=== PATIENT | male | born 1945 | race Caucasian/White ===

== ENCOUNTER 2017-04-26 01:04 | Inpatient (IN) | payer OTHER ==
[2017-04-26] MEDS ORDERED: NS 1,000 ML IV ONE ×2 (01:13→01:57)
--- NOTE | 2017-04-26 01:15 | EDPHY ---
H & P Time Seen by Provider: 04/26/17 01:10 HPI/ROS: HPI CHIEF COMPLAINT: Atrial fibrillation, hypoxic, abdominal pain, right-sided chest pain HISTORY OF PRESENT ILLNESS: This patient very pleasant 71-year-old male, history of atrial fibrillation, not on any medications specifically not any blood thinners. He initially presented to urgent care earlier today for what he thought was AFib. He was confirmed to be in AFib and sent home. Tried to go to sleep this night and felt short of breath and irregular heartbeat he became anxious and concerned that was going to stop breathing so he went to [facility] Emergency room where he was found to be in AFib and had blood work that showed a positive D-dimer slightly elevated troponin. They were unable to perform a CT scan in [facility] parking was referred here to the emergency room for further evaluation. Upon arrival to the emergency room is vital signs are stable. He is in AFib. Does complain of some left lower quadrant abdominal pain. He does report to me that he vomited 1 time and had some right posterior scapula pain. At [place] he did elevated D-dimer above 5000. Past Medical History: AFib, colitis Past Surgical History: No recent surgery Social History: Denies daily use drugs alcohol tobacco products. Family History: Noncontributory. ROS REVIEW OF SYSTEMS: A comprehensive 10 point review of systems is otherwise negative aside from elements mentioned in the history of present illness. Exam Constitutional appears well nontoxic triage nursing summary reviewed, vital signs reviewed, awake/alert. Eyes normal conjunctivae and sclera, EOMI, PERRLA. HENT normal inspection, atraumatic, moist mucus membranes, no epistaxis, neck supple/ no meningismus, no raccoon eyes. Respiratory clear to auscultation bilaterally, normal breath sounds, no respiratory distress, no wheezing. Cardiovascular irregular, irregular rhythm, regular rhythm, no murmur, no edema, distal pulses normal. Gastrointestinal soft, non-tender, no rebound, no guarding, normal bowel sounds, no distension, no pulsatile mass. Genitourinary no CVA tenderness. Musculoskeletal no midline vertebral tenderness, full range of motion, no calf swelling, no tenderness of extremities, no meningismus, good pulses, neurovascularly intact. Skin pink, warm, & dry, no rash, skin atraumatic. Neurologic awake, alert and oriented x 3, AAOx3, moves all 4 extremities equally, motor intact, sensory intact, CN II-XII intact, normal cerebellar, normal vision, normal speech. Psychiatric normal mood/affect. Heme/Lymph/Immune no lymphadenopathy. Differential diagnosis includes but is not limited to: ACS, atypical chest pain , pneumothorax, pneumonia, pulmonary embolism, aortic dissection, congestive heart failure, tumor, musculoskeletal pain, esophageal pain, GERD, peptic ulcer disease, pancreatitis, Differential diagnosis includes but is not limited to and in no particular order: Bowel obstruction, appendicitis, gallbladder disease, diverticulitis, colitis, enteritis, perforated viscus, gastritis, GERD , esophagitis, urinary tract infection, pyelonephritis, kidney stones Medical Decision Making: Plan for this patient IV established with IV fluid bolus, full chronic disease manager, obtain EKG, blood work, D-dimer, CT angiogram of the chest and CT scan abdomen pelvis with IV contrast delineate pulmonary embolism aortic dissection or acute abdominal pain colitis, diverticulitis. Re-evaluation: EKG interpretation by me on record in [email or web address] system. Impression time of EKG 1:13 a.m. this is AFib rate of 87. Abnormal T-waves in V1 V2. Subtle ST depression in V1 V2 V3. When I compare this to his old EKG dated 01/09/2014 this is new ischemic changes. ED x-ray chest one view: Reviewed by myself. Linear atelectasis right lung base. Cardiomegaly. I do not appreciate acute infiltrate. CT scan of the chest abdomen pelvis with IV contrast. The results of the study are extensive clot burden. Main pulmonary artery. Right ventricular strain. Additionally clot is seen in the left kidney. With infarcted left kidney. The study was read by Dr. Chavez I viewed the images myself on the PACS system. 0248AM: Blood work reviewed here. Patient has a positive D-dimer. Elevated BNP indicating heart strain. There is no evidence of heart failure. CT scan show pulmonary embolism patient be started on heparin bolus heparin drip. Will be admitted to PCU for close monitoring. Will consult the hospitalist for admission. 0301AM: Touch base with the hospitalist service Dr. Palacio. Agrees for admission. Patient I have ordered IV heparin bolus and IV heparin drip. Reason for heparin extensive pulmonary emboli. Additionally the patient be placed on full telemetry monitoring for close monitoring of multiple pulmonary embolism with elevated troponin heart strain nonischemic EKG. At this time is resting comfortably. He is hemodynamically stable. He has an oxygen requirement of 3 L his initial room air saturation was 84%. Additionally his son is a physician. I will touch base with him to update them. Patient be hospitalized for acute pulmonary emboli. I do not feel this patient needs team case her tPA at this time he is not hemodynamically unstable. He is not impending cardiac arrest. Critical Care: Total Critical Care Time Spent Managing this Patient: 30 Minutes. This time was spent Exclusively with this patient. This Care was exclusive of procedures. The Organ System/life at risk was Pulmonary This Patient was in Critical Condition because extensive pulmonary emboli. Source: Patient, EMS - Social History Smoking Status: Former smoker Constitutional: Initial Vital Signs Temperature (C) 36.8 C 04/26/17 01:11 Heart Rate 94 04/26/17 01:11 Respiratory Rate 20 04/26/17 01:11 Blood Pressure 131/79 H 04/26/17 01:11 O2 Sat (%) 92 04/26/17 01:11 O2 Delivery Mode Nasal Cannula O2 (L/minute) 4 Allergies/Adverse Reactions: hydrocodone Allergy (Severe, Verified 04/26/17 08:51) Other-Enter Comments morphine Allergy (Verified 04/26/17 08:55) Itching oxycodone [From OxyContin] Allergy (Verified 04/26/17 08:59) Other-Enter Comments Home Medications: Medication Instructions Recorded Ascorbic Acid [Vitamin C 500 mg 500 mg PO DAILY 04/26/17 (*)] Nebivolol HCl [Bystolic 5 mg (*)] 10 mg PO DAILY 04/26/17 [place]-3 Fatty Acids [Fish Oil 1000 1,000 mg PO DAILY 04/26/17 mg (*)] Medical Decision Making - Diagnostics Imaging Results: Imaging Impressions Chest X-Ray 04/26/17 01:13 Impression: 1. Linear atelectasis in the right lower lobe. 2. No pneumothorax. - Data Points Laboratory Results: Laboratory Results 04/26/17 01:25 04/26/17 01:25 Medications Given: Acetaminophen (Tylenol) 650 mg PO Q4HRS PRN PRN Reason: Pain, Mild/Fever, Can Take PO Stop: 10/23/17 05:54 Last Admin: 04/26/17 06:02 Dose: 650 mg Fentanyl (Sublimaze) 50 mcg IVP Q2HRS PRN PRN Reason: Pain, Severe Unable to Take PO Stop: 05/06/17 08:45 Last Admin: 04/26/17 18:49 Dose: 50 mcg Sodium Chloride (Ns) 1,000 mls @ 75 mls/hr IV CONT KATIE Stop: 10/23/17 03:14 Last Admin: 04/26/17 18:01 Dose: 1,000 mls Heparin Sodium (Porcine) (Heparin 50 Units/Ml (Premix)) 500 mls @ 0 mls/hr IV CONT KATIE; Per Protocol PRN Reason: Protocol Stop: 10/23/17 11:14 Last Admin: 04/26/17 18:31 Dose: 500 mls Nebivolol (Bystolic) 10 mg PO DAILY KATIE Stop: 10/23/17 17:29 Last Admin: 04/26/17 18:01 Dose: 10 mg Ondansetron HCl (Zofran) 4 mg IVP Q4HRS PRN PRN Reason: Nausea/Vomiting, Can't Take PO Stop: 10/23/17 03:04 Last Admin: 04/26/17 08:01 Dose: 4 mg Oxycodone/Acetaminophen (Percocet 5/325) 1 tab PO Q4HRS PRN PRN Reason: Pain, Severe Able to Take PO Stop: 05/06/17 08:44 Last Admin: 04/26/17 21:03 Dose: 1 tab Discontinued Medications Heparin Sodium (Porcine) (Heparin Injection) 0 unit IVP EDNOW ONE PRN Reason: Protocol Stop: 04/26/17 02:47 Last Admin: 04/26/17 03:12 Dose: 6,100 units Hydromorphone HCl (Dilaudid) 0.5 mg IVP EDNOW ONE Stop: 04/26/17 01:58 Last Admin: 04/26/17 02:23 Dose: 0.5 mg Sodium Chloride (Ns) 1,000 mls @ 0 mls/hr IV EDNOW ONE; Wide Open PRN Reason: Protocol Stop: 04/26/17 01:14 Last Admin: 04/26/17 02:01 Dose: 1,000 mls Sodium Chloride (Ns) 1,000 mls @ 0 mls/hr IV ONCE ONE PRN Reason: Wide Open Stop: 04/26/17 01:58 Last Admin: 04/26/17 02:20 Dose: Not Given Heparin Sodium (Porcine) (Heparin 50 Units/Ml (Premix)) 500 mls @ 0 mls/hr IV EDNOW ONE; Per Protocol PRN Reason: Protocol Stop: 04/26/17 02:47 Last Admin: 04/26/17 03:25 Dose: 500 mls Ondansetron HCl (Zofran) 4 mg IVP EDNOW ONE Stop: 04/26/17 02:04 Last Admin: 04/26/17 02:04 Dose: 4 mg Ondansetron HCl (Zofran) 4 mg IVP EDNOW ONE Stop: 04/26/17 02:51 Last Admin: 04/26/17 02:51 Dose: 4 mg Pneumococcal 13-Valent Conj Vacc (Prevnar 13 Syringe) 0.5 ml IM .ONCE ONE Stop: 04/26/17 09:59 Last Admin: 04/26/17 12:41 Dose: 0.5 ml Departure - Departure Disposition: [facility] Inpatient Acute Clinical Impression: Atrial fibrillation Qualifiers: Atrial fibrillation type: unspecified Qualified Code(s): I48.91 - Unspecified atrial fibrillation Pulmonary emboli Qualifiers: Pulmonary embolism type: other Chronicity: acute Acute cor pulmonale presence: with acute cor pulmonale Qualified Code(s): I26.09 - Other pulmonary embolism with acute cor pulmonale Condition: Fair
--- NOTE | 2017-04-26 01:16 | CPEKG ---
Heart Rate: 87 RR Interval: 690 QRSD Interval: 112 QT Interval: 404 QTC Interval: 486 QRS [place]: 109 T Wave [place]: 24 EKG Severity - ABNORMAL ECG - EKG Impression: ATRIAL FIBRILLATION, V-RATE 77-100 EKG Impression: NONSPECIFIC INTRAVENTRICULAR CONDUCTION DELAY EKG Impression: MINIMAL ST DEPRESSION, ANTERIOR LEADS Electronically Signed By: Marquis Guerrier 26-Apr-2017 06:35:17
--- NOTE | 2017-04-26 01:16 | CPEKG ---
Heart Rate: 87 RR Interval: 690 QRSD Interval: 112 QT Interval: 404 QTC Interval: 486 QRS [place]: 109 T Wave [place]: 24 EKG Severity - ABNORMAL ECG - EKG Impression: ATRIAL FIBRILLATION, V-RATE 77-100 EKG Impression: NONSPECIFIC INTRAVENTRICULAR CONDUCTION DELAY EKG Impression: MINIMAL ST DEPRESSION, ANTERIOR LEADS Electronically Signed By: Marquis Guerrier 26-Apr-2017 06:35:17
[2017-04-26 01:35] LABS: PLATELET COUNT 188 10^3/uL (150-400)
[2017-04-26 01:41] LABS: INR 1.15 (0.83-1.16); PROTIME(PATIENT) 14.7 SEC (12.0-15.0)
[2017-04-26] MEDS ORDERED: IOPAMIDOL (ISOVUE 370) 100 ML BTL IV ONE (01:42)
[2017-04-26 01:45] LABS: CREATINE KINASE 105 IU/L (0-224)
[2017-04-26] MEDS ORDERED: ONDANSETRON 4 MG/2 ML VIAL ONE (01:57)
[2017-04-26] MEDS ORDERED: HYDROmorphONE/DILAUDID 1 MG/ML INJ IVP ONE (01:57)
[2017-04-26] MEDS ORDERED: ONDANSETRON 4 MG/2 ML VIAL IVP ONE ×2 (02:03→02:50)
[2017-04-26] MEDS ORDERED: HEPARIN 10,000 UNIT/10 ML MDV IVP ONE (02:46)
[2017-04-26] MEDS ORDERED: HEPARIN/DEXTROSE 500 ML IV ONE (02:46)
[2017-04-26] MEDS ORDERED: LORazepam 0.5 MG TAB PO PRN (03:05)
[2017-04-26] MEDS ORDERED: ONDANSETRON DISINTEGRATING 4 MG TAB PO PRN (03:05)
[2017-04-26] MEDS ORDERED: HEPARIN/DEXTROSE 500 ML IV SCH (03:15)
[2017-04-26] MEDS ORDERED: diphenhydrAMINE 25 MG CAP PO PRN (05:21)
[2017-04-26] MEDS: NS 1,000 ML IV SCH ×2 (05:35→18:01)
[2017-04-26] MEDS: ACETAMINOPHEN 325 MG TAB PO PRN (06:02)
[2017-04-26 07:53] LABS: INR 1.22 (0.83-1.16); PROTIME(PATIENT) 15.4 SEC (12.0-15.0)
[2017-04-26 07:56] LABS: PLATELET COUNT 168 10^3/uL (150-400)
[2017-04-26] MEDS: ONDANSETRON 4 MG/2 ML VIAL IVP PRN (08:01)
--- NOTE | 2017-04-26 08:56 | HOSPPROG ---
Hospitalist Progress Note Assessment/Plan: brief admit note. H&P dictated #[id number] Pleasant 71 yo M with hx Afib s/p ablation not on anticoagulation and rate control just starting yesterday presents to ED in [place] with complaints of worsening SOB/apnea/PND. 1. acute PE - large clot burden. no identifiable inciting events. patient started on heparin drip. further discussion with patient/ regarding transition to oral options available once stabilized. consider pulm consult in AM. 2. hypoxia - continue with supplemental o2 and titrate down as possible 3. atrial fib - rate controlled. resume beta evangelina once patient stabilized. 4. leukocytosis - likely reactive. patient afebrile and without evidence of infectious process. 5. ezequiel - likely multifactorial including in setting of hypoxia and renal injury with renal infarct on ct. 6. elevated troponin - trend. pt denies chest pain. CAD noted on CTA. no acute ST changes. old q waves inferior leads. echo in AM. 7. elevated btnp - right heart strain with large clot burden 8. LLQ abdominal pain - likely related to renal infarct vs less likely colitis. FEN - IVF. electrolyte replacement prn. diet as tolereted. PPX - on heparin. no SCDs. no LE edema. COR - FULL. son Rohit Singleton MARTIOA is FP in [place]. Dispo - Admit inpatient status anticipate > 48 hour stay. Objective: Vital Signs Temp Pulse Resp BP Pulse Ox 36.2 C 72 20 134/82 H 97 04/26/17 08:00 04/26/17 08:00 04/26/17 08:00 04/26/17 08:00 04/26/17 08:00 Laboratory Results 04/26/17 07:25 04/26/17 07:25 04/25/17 04/26/17 04/27/17 05:59 05:59 05:59 Intake Total 1703 Balance 1703 PT 15.4 SEC (12.0-15.0) H 04/26/17 07:25 INR 1.22 (0.83-1.16) H 04/26/17 07:25 ICD10 Worksheet Patient Problems: Problems Problem Status Onset Atrial fibrillation Acute Pulmonary emboli Acute
[2017-04-26] MEDS: fentaNYL 100 MCG/2 ML INJ IVP PRN ×4 (09:03→18:49)
[2017-04-26] MEDS ORDERED: PNEUMOC 13-VAL CONJ-DIP CRM/PF 0.5 ML SYR IM ONE (09:58)
--- NOTE | 2017-04-26 10:13 | GHP ---
[f rep st] HISTORY AND PHYSICAL DATE OF ADMISSION: 04/26/2017 SOURCE: Patient provides history, appears reliable. His at bedside and supplements history. Kenyetta mcneal discussed with ED provider at [facility] as well as ED provider prior to arrival o n the floor. CHIEF COMPLAINT: Shortness of breath, palpitations. HISTORY OF PRESENT ILLNESS: A very pleasant 71-year-old gentleman with past medical history of remot e atrial fibrillation status post cardioversion in 2013, who is not on anticoagulation or rate contro l, and otherwise not on any other medications who presented earlier today prior to admission at [facility] in [place] with complaints of palpitations concerning for atrial fibrillation. Patient's e valuation was positive for atrial fibrillation that was rate controlled. He was prescribed a sample box of a beta evangelina, which he cannot recall at this time. Patient was subsequently discharged home . However, in the evening patient reported difficulty lying flat to sleep. He had PMD and was findi ng he was gasping for air. He was concerned for apneic event. He did not have any complaints of fev ers, chills, or chest pain. He continued to have intermittent palpitations, dyspnea on exertion, ort hopnea, PND, and subsequently developed right scapular pain and left lower quadrant abdominal pain. Patient states that his initial symptoms of shortness of breath were a little bit more mild, started approximately 4 days ago. His symptoms persisted. Approximately 9 p.m. patient reports that he was straining to have a bowel movement, subsequently developed nausea, vomiting, felt quite unwell and so presented to the emergency department for further evaluation. Patient states approximately this kaveh e his left lower quadrant abdominal pain started. It feels like a dull, constant aching pain that ra diates to his back. Patient does have a remote history of colitis, but this did feel a little bit di fferent. He denies any melena or hematochezia. Some mild constipation. Patient denies any lower ex tremity swelling. He does have a history of recent travel approximately 1 month ago by motorcycle, b ut nothing more recent than that. FAMILY HISTORY: No family history of DVTs or PEs. REVIEW OF SYSTEMS: GENERAL: No fevers, chills. SKIN: No rashes or sores. ENT: Patient denies an y congestion, sore throat. EYES: Patient does report a history of migraines. Quite typically he de velops aura in 1 eye or the other with a central blind spot that extends peripherally in a ring type formation. He reports some increased episodes of migraines in the last several days, but nothing acu tely changed from his norm. He denies any focal weakness. CV: Patient does report some palpitation s. No chest pain as noted above. RESPIRATORY: Patient with dyspnea and cough as noted above. GI: Nausea, vomiting x1 episode at approximately 9 p.m. left lower quadrant abdominal pain as noted abo ve in HPI. : No dysuria or hematuria. MUSCULOSKELETAL: Patient does complain of left back pain that radiates from the left lower quadrant anteriorly. He has bilateral knee pain that has been incr easing with episodes of locking, but no falls. NEURO: Patient with visual changes related to aura a nd migraines as noted above. PSYCH: Denies anxiety or depression. ALLERGIES: Vicodin, morphine, oxycodone. Patient develops apnea as well as altered mental status. HOME MEDICATIONS: Recently started on beta evangelina prior to admission. PAST MEDICAL HISTORY: Significant for atrial fibrillation status post cardioversion in 2013, colitis , migraine headaches with aura, as noted above. PAST SURGICAL HISTORY: Significant for bilateral total knee arthroplasty, colonoscopy, left foot rina ous stasis. FAMILY HISTORY: Mother and father with history of heart issues, now . No DVT or PE in the f amily. Sister with history of diabetes, CA of chest. SOCIAL HISTORY: Patient is . He does not smoke, drink, or do drugs. CODE STATUS: Full. Patient's son is a family physician, Rohit Singleton, and patient lists him as medica l power of workers compensation defense attorney if needed. PHYSICAL EXAMINATION: VITAL SIGNS: On arrival, blood pressure 131/79, heart rate is 94, O2 saturati on 92% on room air with a temperature 36.8. Patient did subsequently develop some hypoxia below 90%. He was placed on 3 L with improvement to low 90s O2 saturation. GENERAL: No acute distress. Very pleasant, obese gentleman, is lying comfortably in bed. His is at bedside. He does appear chr onically ill, but in no acute distress. HEAD: Normocephalic, atraumatic. EYES: Extraocular muscle s are intact. Pupils are decreased but symmetric with no scleral icterus or conjunctival injection. ENT: Mucous membranes appear moist. No oropharyngeal erythema or exudates. NECK: Supple. Trache a midline. CV: Irregularly irregular rhythm with normal rate in the 80s to 90s. No murmurs, rubs, or gallops appreciated. RESPIRATORY: Lungs are clear to auscultation bilaterally. No wheezes, rale s, or rhonchi. Few crackles on the right base compared to the left, otherwise clear. ABDOMEN: Obes e, soft with limited tenderness to deep palpation of left lower quadrant. No rebound or guarding. G U: No Juan in place. No suprapubic tenderness to palpation. No focal CVA tenderness. MUSCULOSKEL ETAL: Strength grossly normal. Patient sits up independently. Moves all extremities. Strength is 5/5 in upper and lower extremities. PSYCH: Patient's thought process, content and questions appropr iate. NEURO: Cranial nerves II through XII intact symmetric bilaterally. Patient is awake, alert, and oriented x4. Sensation intact. Moves all extremities as above. LABORATORY STUDIES: 1. WBC 12.35, H and H is 16.5 and 47.5, MCV of 73.0, platelet count is 188, neutrophil percent 87.3, no bands. 2. PT is 14.7, INR is 1.15, PTT is 31.5 with a D-dimer greater than 20. 3. VBG lactic acid 1.5. 4. Sodium 142, potassium 5.0, chloride 105, CO2 21, BUN __, creatinine __.6, GFR 45, glucose 150, ca lcium 9.0, magnesium 2.0, total bilirubin 0.5, conjugated bilirubin 0.3, ALT is 29, AST is 23, alkali ne phosphatase is 87. CK is 105, CK-MB 0.43, troponin 0.063. BTNP is 5460. Total protein 6.9, albu min 4.1, lipase 148. 5. EKG reviewed myself showing atrial fibrillation with rate in the 80s, nonspecific intraventricula r conduction delay, minimal ST depression in the anterior leads. Q-wave in the inferior lead. IMAGING: Reports and images reviewed. 1. Chest x-ray: Linear atelectasis right lower lobe. No pneumothorax. 2. CTA abdomen and pelvis: Large volume pulmonary emboli associated with secondary findings of elev ated right-sided heart pressures. No intracardiac thrombus identified. Coronary artery disease pres ent. Heart is enlarged. Patient also with thrombus in the left kidney as well as infarct. Report o n this is still pending. DISCUSSION AND DECISION-MAKING: A pleasant 71-year-old gentleman with history of paroxysmal atrial f ibrillation, who presented to the emergency department with acute progressive onset of shortness of b reath with right posterior scapular pain and left lower abdominal pain. 1. Acute PE with large clot burden. Patient has been started on heparin bolus and drip. Consider f urther discussion with pulmonology and further discussion with the patient and when they have sabillon d time to rest regarding consideration for anticoagulation. Patient's vital signs at this point are stable. He does have some mild hypoxia corrected with supplemental oxygen. Hypercoagulable coagulab ility studies have been ordered with exception of protein C, protein S, given that they will be abnor mal in setting of acute thromboembolism. 2. Hypoxia. Improved with supplemental oxygen. Continue plan as above. Titrate down O2 as needed to maintain sats greater than 90. 3. History of atrial fibrillation status post ablation 2007, now with recurrence of atrial fibrillat ion, likely in setting of exacerbation with acute PE. Patient is currently anticoagulated on heparin and rate is controlled. He did receive a dose of a beta evangelina yesterday. At this point, will con tinue to monitor and once patient's status has stabilized, anticipate we will resume his beta evangelina . 4. Leukocytosis, likely reactive in setting of acute PE and respiratory changes. Patient is afebril e. No evidence of pneumonia with infectious source at this time. Will plan to repeat a CBC in the [facility]. 5. Acute kidney injury, likely multifactorial, particularly in setting of hypoxia and then large karri t burden with renal involvement and infarct. Will give patient some gentle IV fluid hydration. Repe at a BMP in the morning. Continue with anticoagulation. Consider renal ultrasound if no improvement in renal function. 6. Elevated troponin. Patient with evidence of right heart strain on imaging. Plan to trend tropon ins. Patient denies any chest pain at this point. He does have evidence of coronary artery disease on CT, but again he is asymptomatic. Denies any chest pain. Continue with heparin drip. Echocardio gram has been ordered for this morning. 7. Elevated BTNP in setting of large clot volume and right heart strain. Continue to monitor clinic ally. 8. Left lower quadrant abdominal pain, likely related to recent findings of left renal infarct versu s colitis, which is less likely as patient is without any evidence of active disease on CT. Continue supportive care. Tylenol p.r.n. for pain. Avoiding narcotics and Benadryl secondary to patient's r eported history of altered mental status. 9. Fluid, electrolyte, nutrition. Continue IV fluids for gentle hydration. Advance diet as tolerat ed. Electrolyte replacement if needed. 10. Prophylaxis. SCDs will be held as patient is already on heparin drip for anticoagulation in set ting of acute PE. No history of GI issues. 11. Code status is full. Patient's son, Rohit Singleton, is assigned as MD CHRISTENSEN, if needed. 12. Disposition: Patient admitted to inpatient status given severity of PE, hypoxia, need for furth er evaluation from cardiac standpoint and further evaluation of patient's renal infarct. /[id number]/MODL
[2017-04-26] MEDS: OXYCODONE/APAP 5/325 TAB PO PRN ×3 (10:22→21:03)
--- NOTE | 2017-04-26 10:59 | PDMN ---
Medical Necessity Medical necessity: M290 PE- large clot burden started on Hep drip, hypoxemia- sats below 90% RA, 3L -mid 90;s, hx of Afib with recurrence, leukocytosis, acute kidney injury, elevated trop ( 0.63 BNP 5460) with CAD, R heart strain noted , LLQ abd pain noted. anticipated > 2 midnights for further eval ,tx and monitoring -
--- NOTE | 2017-04-26 12:22 | ECHO ---
[email or web address] [address] [address] Main: [phone] Fax: Transthoracic Echocardiogram Name: DAY CALERO MR#: [id number] Study Date: 04/26/2017 Study Time: 08:34 AM Date of : 1945 Age: 71 year(s) Height: 172.7 cm (68 in.) Weight: 102.06 kg (225 lb.) BSA: 2.15 m2 Gender: Male Examination: Echo Indication: New onset Atrial Fibrillation, Cardiac: dyspnea Image Quality: Contrast: Requested by: Kristy Palacio BP: 134 mmHg/82 mmHg Heart Rate: Rhythm: Atrial fibrillation Indication: New onset Atrial Fibrillation, Cardiac: dyspnea Procedure Staff Railroad Yard Worker: Jake Abbott Reading Physician: Sanjiv Pierce Requesting Provider: Conclusions: preserved left ventricular systolic function. Left atrial enlargement with right ventricular systolic pressure of 45 mm of mercury. Measurements: Chambers Valvular Assessment AV/MV Valvular Assessment TV/PV Normal Normal Normal Name Value Range Name Value Range Name Value Range Ao Isabel (MM): 4.1 cm (2.2 cm-3.7 AV Vmax: 0.81 m/s (1 m/s-1.7 TR Vmax: 3.16 mm/s ( - ) cm) m/s) TR PGmax: 40 mmHg ( - ) IVSd (2D): 1.0 cm (0.6 cm-1.1 AV maxP mmHg ( - ) syst. PAP: 45 mmHg ( - ) cm) LVOT Vmax: 0.64 m/s (0.7 m/s-1.1 PV Vmax: 0.86 m/s (0.6 m/s-0.9 LVDd (2D): 4.8 cm (4.2 cm-5.9 m/s) m/s) cm) MV E Vmax: 0.37 m/s ( - ) PV PGmax: 3 mmHg ( - ) LVDs (2D): 3.2 cm (2.1 cm-4 MV A Vmax: 0.82 m/s ( - ) cm) MV E/A: 0.45 ( - ) LVPWd (2D): 0.9 cm (0.6 cm-1 cm) LVEF (MM): 66 (>=55 %) Continued Measurements: Chambers Valvular Assessment AV/MV Valvular Assessment TV/PV Name Value Name Value Name Value LADs Lon.9 cm MV E/E' Septal: 12.30 CVP (est.): 5 mmHg LA Area: 26.0 cm2 MV E/E' Lateral: 3.40 LA Volume: 83 ml LA Volume Index: 38.6 ml/m2 Patient: DAY CALERO Study Date: 04/26/2017 Page 1 of 2 08:34 AM Findings: Left Ventricle: Normal size left ventricle. No LV hypertrophy. Normal global systolic LV function. EF is 66 %. Diastolic dysfunction is present. . Regional wall motion cannot be assessed due to atrial fibrillation /dysrhythmia. Right Ventricle: Normal size right ventricle. Normal RV function. Left Atrium: The left atrium is mildly to moderately dilated. The interatrial septum is known to be intact with no evidence for an atrial septal defect from prior LINO 01/09/14 injection of contrast documented no interatrial shunt. Right Atrium: The right atrium is normal in size. Mitral Valve: Mild mitral valve leaflet calcification is present. Aortic Valve: The aortic valve is normal in appearance and function. The aortic valve is tri-leaflet. Tricuspid Valve: Mild tricuspid regurgitation is present. The pulmonary artery pressure is mildly increased. Right Ventricular systolic pressure is measured at 45 mmHg. Pulmonic Valve: The pulmonic valve is normal in appearance and function. Aorta: The aorta is normal. Pericardium: Trivial anterior pericardial effusion. (No Signature Object) Patient: DAY CALERO Study Date: 04/26/2017 Page 2 of 2 08:34 AM [id number]
--- NOTE | 2017-04-26 12:22 | ECHO ---
[email or web address] [address] [address] Main: [phone] Fax: Transthoracic Echocardiogram Name: DAY CALERO MR#: [id number] Study Date: 04/26/2017 Study Time: 08:34 AM Date of : 1945 Age: 71 year(s) Height: 172.7 cm (68 in.) Weight: 102.06 kg (225 lb.) BSA: 2.15 m2 Gender: Male Examination: Echo Indication: New onset Atrial Fibrillation, Cardiac: dyspnea Image Quality: Contrast: Requested by: Kristy Palacio BP: 134 mmHg/82 mmHg Heart Rate: Rhythm: Atrial fibrillation Indication: New onset Atrial Fibrillation, Cardiac: dyspnea Procedure Staff Perforator Typist: Jake Abbott Reading Physician: Sanjiv Pierce Requesting Provider: Conclusions: preserved left ventricular systolic function. Left atrial enlargement with right ventricular systolic pressure of 45 mm of mercury. Measurements: Chambers Valvular Assessment AV/MV Valvular Assessment TV/PV Normal Normal Normal Name Value Range Name Value Range Name Value Range Ao Isabel (MM): 4.1 cm (2.2 cm-3.7 AV Vmax: 0.81 m/s (1 m/s-1.7 TR Vmax: 3.16 mm/s ( - ) cm) m/s) TR PGmax: 40 mmHg ( - ) IVSd (2D): 1.0 cm (0.6 cm-1.1 AV maxP mmHg ( - ) syst. PAP: 45 mmHg ( - ) cm) LVOT Vmax: 0.64 m/s (0.7 m/s-1.1 PV Vmax: 0.86 m/s (0.6 m/s-0.9 LVDd (2D): 4.8 cm (4.2 cm-5.9 m/s) m/s) cm) MV E Vmax: 0.37 m/s ( - ) PV PGmax: 3 mmHg ( - ) LVDs (2D): 3.2 cm (2.1 cm-4 MV A Vmax: 0.82 m/s ( - ) cm) MV E/A: 0.45 ( - ) LVPWd (2D): 0.9 cm (0.6 cm-1 cm) LVEF (MM): 66 (>=55 %) Continued Measurements: Chambers Valvular Assessment AV/MV Valvular Assessment TV/PV Name Value Name Value Name Value LADs Lon.9 cm MV E/E' Septal: 12.30 CVP (est.): 5 mmHg LA Area: 26.0 cm2 MV E/E' Lateral: 3.40 LA Volume: 83 ml LA Volume Index: 38.6 ml/m2 Patient: DAY CALERO Study Date: 04/26/2017 Page 1 of 2 08:34 AM Findings: Left Ventricle: Normal size left ventricle. No LV hypertrophy. Normal global systolic LV function. EF is 66 %. Diastolic dysfunction is present. . Regional wall motion cannot be assessed due to atrial fibrillation /dysrhythmia. Right Ventricle: Normal size right ventricle. Normal RV function. Left Atrium: The left atrium is mildly to moderately dilated. The interatrial septum is known to be intact with no evidence for an atrial septal defect from prior LINO 01/09/14 injection of contrast documented no interatrial shunt. Right Atrium: The right atrium is normal in size. Mitral Valve: Mild mitral valve leaflet calcification is present. Aortic Valve: The aortic valve is normal in appearance and function. The aortic valve is tri-leaflet. Tricuspid Valve: Mild tricuspid regurgitation is present. The pulmonary artery pressure is mildly increased. Right Ventricular systolic pressure is measured at 45 mmHg. Pulmonic Valve: The pulmonic valve is normal in appearance and function. Aorta: The aorta is normal. Pericardium: Trivial anterior pericardial effusion. (No Signature Object) Patient: DAY CALERO Study Date: 04/26/2017 Page 2 of 2 08:34 AM [id number]
--- NOTE | 2017-04-26 12:22 | ECHO ---
[email or web address] [address] [address] Main: [phone] Fax: Transthoracic Echocardiogram Name: DAY CALERO MR#: [id number] Study Date: 04/26/2017 Study Time: 08:34 AM Date of : 1945 Age: 71 year(s) Height: 172.7 cm (68 in.) Weight: 102.06 kg (225 lb.) BSA: 2.15 m2 Gender: Male Examination: Echo Indication: New onset Atrial Fibrillation, Cardiac: dyspnea Image Quality: Contrast: Requested by: Kristy Palacio BP: 134 mmHg/82 mmHg Heart Rate: Rhythm: Atrial fibrillation Indication: New onset Atrial Fibrillation, Cardiac: dyspnea Procedure Staff Customs Officer: Jake Abbott Reading Physician: Sanjiv Pierce Requesting Provider: Conclusions: preserved left ventricular systolic function. Left atrial enlargement with right ventricular systolic pressure of 45 mm of mercury. Measurements: Chambers Valvular Assessment AV/MV Valvular Assessment TV/PV Normal Normal Normal Name Value Range Name Value Range Name Value Range Ao Isabel (MM): 4.1 cm (2.2 cm-3.7 AV Vmax: 0.81 m/s (1 m/s-1.7 TR Vmax: 3.16 mm/s ( - ) cm) m/s) TR PGmax: 40 mmHg ( - ) IVSd (2D): 1.0 cm (0.6 cm-1.1 AV maxP mmHg ( - ) syst. PAP: 45 mmHg ( - ) cm) LVOT Vmax: 0.64 m/s (0.7 m/s-1.1 PV Vmax: 0.86 m/s (0.6 m/s-0.9 LVDd (2D): 4.8 cm (4.2 cm-5.9 m/s) m/s) cm) MV E Vmax: 0.37 m/s ( - ) PV PGmax: 3 mmHg ( - ) LVDs (2D): 3.2 cm (2.1 cm-4 MV A Vmax: 0.82 m/s ( - ) cm) MV E/A: 0.45 ( - ) LVPWd (2D): 0.9 cm (0.6 cm-1 cm) LVEF (MM): 66 (>=55 %) Continued Measurements: Chambers Valvular Assessment AV/MV Valvular Assessment TV/PV Name Value Name Value Name Value LADs Lon.9 cm MV E/E' Septal: 12.30 CVP (est.): 5 mmHg LA Area: 26.0 cm2 MV E/E' Lateral: 3.40 LA Volume: 83 ml LA Volume Index: 38.6 ml/m2 Patient: DAY CALERO Study Date: 04/26/2017 Page 1 of 2 08:34 AM Findings: Left Ventricle: Normal size left ventricle. No LV hypertrophy. Normal global systolic LV function. EF is 66 %. Diastolic dysfunction is present. . Regional wall motion cannot be assessed due to atrial fibrillation /dysrhythmia. Right Ventricle: Normal size right ventricle. Normal RV function. Left Atrium: The left atrium is mildly to moderately dilated. The interatrial septum is known to be intact with no evidence for an atrial septal defect from prior LINO 01/09/14 injection of contrast documented no interatrial shunt. Right Atrium: The right atrium is normal in size. Mitral Valve: Mild mitral valve leaflet calcification is present. Aortic Valve: The aortic valve is normal in appearance and function. The aortic valve is tri-leaflet. Tricuspid Valve: Mild tricuspid regurgitation is present. The pulmonary artery pressure is mildly increased. Right Ventricular systolic pressure is measured at 45 mmHg. Pulmonic Valve: The pulmonic valve is normal in appearance and function. Aorta: The aorta is normal. Pericardium: Trivial anterior pericardial effusion. (No Signature Object) Patient: DAY CALERO Study Date: 04/26/2017 Page 2 of 2 08:34 AM [id number]
--- NOTE | 2017-04-26 15:47 | ASMTCMCOM ---
CM Note CM Note Notes: 04/26/2017 Case Management Note Reviewed chart. No case management d/c needs identified d/t pt age, marital status and activity levels prior to admission. No therapy evals ordered. Case Management d/c poc: Home with family support when medically stable with follow up as directed. Date Signed: 04/26/2017 03:46 PM Electronically Signed By:Babita Díaz RN
[2017-04-26] MEDS: NEBIVOLOL HCL 5 MG TAB PO SCH (18:01)
[2017-04-26] MEDS: HEPARIN/DEXTROSE 500 ML IV SCH (18:31)
[2017-04-26] MEDS ORDERED: METOPROLOL TARTRATE 25 MG TAB PO ONE (21:38)
[2017-04-27 05:06] LABS: PLATELET COUNT 167 10^3/uL (150-400)
[2017-04-27 05:13] LABS: INR 1.19 (0.83-1.16); PROTIME(PATIENT) 15.1 SEC (12.0-15.0)
[2017-04-27] MEDS: HEPARIN 10,000 UNIT/10 ML MDV IVP PRN (07:45)
[2017-04-27] MEDS: OXYCODONE/APAP 5/325 TAB PO PRN (08:41)
[2017-04-27] MEDS: NEBIVOLOL HCL 5 MG TAB PO SCH (08:42)
[2017-04-27] MEDS: NS 1,000 ML IV SCH ×3 (08:48→22:44)
[2017-04-27] MEDS: HEPARIN/DEXTROSE 500 ML IV SCH ×2 (09:37→22:05)
--- NOTE | 2017-04-27 10:36 | HOSPPROG ---
Hospitalist Progress Note Assessment/Plan: #. Bilateral LE DVT with PE - Patient was found to have a large volume PE and bilateral LE DVT's on ultrasound. Mild right heart strain was noted with elevated BNP and troponin. No chest pains noted. Patient is on heparin drip currently. We discussed oral anticoagulation yesterday and today. His preference was for NOACs but with mildly rising troponin I think it may be better to use coumadin for now until we have a sense of where his kidney function will go. I did explain that we could change course and still use NOACs later even if we use coumadin for now. #. Acute Hypoxic RF - secondary to PE. I weaned his oxygen down to 2L from 5L during my evaluation and he was able to tolerate this maintaining in the low 90' s. #. TERRANCE - Presumably secondary to renal infarction noted on CT of abdomen as not know to be elevated previously. Creatinine values from 2014 and 2015 were WNL. I increased IVF rate today and will obtain renal ultrasound for further evaluation. #. Leukocytosis - increased today to 16. He does note a productive cough. Repeat CXR today to evaluate for any worsening infiltrate. #. Afib - history of and now recurrent. Previously followed by Dr. Moyer. Patient is on beta evangelina for rate control and now on anticoagulation as well. We discussed that we will want to re-establish with Dr. Moyer after hospital discharge. #. HTN - Bystolic resumed yesterday. Continue to follow. #. Dispo - He will be able for home once anticoagulation plan solidified. Subjective: Patient states he is breathing better today as compared to yesterday and is not having the back/scapular pain or LLQ pain. No hemoptysis. I reviewed everything with the patient and his and all questions answered. Objective: Vital Signs Temp Pulse Resp BP Pulse Ox 37.1 C 107 H 18 125/74 H 96 04/27/17 08:00 04/27/17 08:42 04/27/17 03:10 04/27/17 08:42 04/27/17 08:00 Laboratory Results 04/27/17 03:47 04/27/17 03:47 04/26/17 04/27/17 04/28/17 05:59 05:59 05:59 Intake Total 1703 3966.2 Output Total 1050 Balance 1703 2916.2 PT 15.1 SEC (12.0-15.0) H 04/27/17 03:47 INR 1.19 (0.83-1.16) H 04/27/17 03:47 - Physical Exam Constitutional: no apparent distress, appears nourished, not in pain Eyes: PERRL, anicteric sclera, EOMI Ears, Nose, Mouth, Throat: moist mucous membranes, hearing normal, ears appear normal, no oral mucosal ulcers Cardiovascular: regular rate and rhythym, no murmur, rub, or gallop Respiratory: no respiratory distress, no rales or rhonchi, clear to auscultation Gastrointestinal: normoactive bowel sounds, soft, non-tender abdomen, no palpable masses Genitourinary: no bladder fullness, no bladder tenderness, no renal bruits Skin: no rashes or abrasions, no fluctuance, no induration Musculoskeletal: no muscle tenderness, normal joint ROM Neurologic: AAOx3, sensation intact bilaterally Psychiatric: interacting appropriately, not anxious, not encephalopathic, thought process linear Lymph, Heme, Immunologic: no cervical LAD, no supraclavicular LAD ICD10 Worksheet Patient Problems: Problems Problem Status Onset Atrial fibrillation Acute Pulmonary emboli Acute
[2017-04-27] MEDS: ONDANSETRON 4 MG/2 ML VIAL IVP PRN (13:51)
[2017-04-27] MEDS: WARFARIN SODIUM 5 MG TAB PO SCH (16:28)
[2017-04-28] MEDS: OXYCODONE/APAP 5/325 TAB PO PRN (01:29)
[2017-04-28 05:01] LABS: PLATELET COUNT 146 10^3/uL (150-400)
[2017-04-28 06:17] LABS: INR 1.33 (0.83-1.16); PROTIME(PATIENT) 16.5 SEC (12.0-15.0)
[2017-04-28] MEDS: NS 1,000 ML IV SCH ×3 (06:38→22:56)
[2017-04-28] MEDS: HEPARIN 10,000 UNIT/10 ML MDV IVP PRN (06:47)
[2017-04-28] MEDS: NEBIVOLOL HCL 5 MG TAB PO SCH (09:29)
--- NOTE | 2017-04-28 10:45 | HOSPPROG ---
Hospitalist Progress Note Assessment/Plan: 70-year-old with a history of remote AFib, he had been in sinus rhythm and off anticoagulation for some time presents with shortness of breath and new onset AFib at [place]. He was found to have a DVT and PE and large subtotal left renal infarct. He did get IV contrast in a CT angiogram as well as an abdominal CT with contrast on admission. #. Bilateral LE DVT with PE - Patient was found to have a large volume PE and bilateral LE DVT's on ultrasound. Mild right heart strain was noted with elevated BNP and troponin. No chest pains noted. Patient is on heparin drip currently. We discussed oral anticoagulation yesterday and today. His preference was for NOACs but with mildly rising troponin I think it may be better to use coumadin for now until we have a sense of where his kidney function will go. I did explain that we could change course and still use NOACs later even if we use coumadin for now. * Continue heparin * Continue Coumadin and monitor INR, patient interested in NOAC but unclear of renal function. # lacunar infarct noted on CT scan. Previous LINO demonstrated no inter left right shunt. * Check MRI for evidence of possible embolic strokes * Further recommendations will depend upon findings. * He would likely benefit from a statin if his LDL is less than 70 #. Acute Hypoxic RF - secondary to PE. I weaned his oxygen down to 2L from 5L during my evaluation and he was able to tolerate this maintaining in the low 90' s. #. TERRANCE - Presumably secondary to renal infarction noted on CT of abdomen as well as contrast load given on admission. Creatinine values from 2015 and 2016 were WNL. Renal ultrasound shows no significant postvoid residual, evidence of clot in the renal artery. * Continue hydration given recent contrast load and monitor daily * Discussed with Nephrology, he will need outpatient nephrology follow-up * Avoid further nephrotoxin medications * Continue heparin and Coumadin for now when his creatinine stabilizes could consider changing to Eliquis or Xarelto #. Leukocytosis - likely from stress of infarct and pulmonary embolus, will repeat in a.m. #. Afib - remote history of AFib status post cardioversion and had been in sinus rhythm until recently. * Anticoagulation with Coumadin * Continue metoprolol * Follow up with Dr. Moyer, [facility] #. HTN - Bystolic resumed yesterday. Continue to follow. #. Dispo - He will be able for home once anticoagulation plan solidified. Subjective: Patient new to me and chart reviewed. His main complaint is some discomfort in his left abdomen. He has no chest pain minimal shortness of breath although he feels weak all over. Objective: Vital Signs Temp Pulse Resp BP Pulse Ox 37.4 C 100 20 109/70 93 04/28/17 07:14 04/28/17 07:14 04/28/17 07:14 04/28/17 07:14 04/28/17 07:14 Microbiology 04/26/17 03:05 Blood Panel (PCR) - Final Blood Staph Coagulase Negative Laboratory Results 04/28/17 03:53 04/28/17 03:53 04/27/17 04/28/17 04/29/17 05:59 05:59 04:59 Intake Total 3966.2 3846 Output Total 1050 1100 Balance 2916.2 2746 PT 16.5 SEC (12.0-15.0) H 04/28/17 03:53 INR 1.33 (0.83-1.16) H 04/28/17 03:53 - Physical Exam Constitutional: chronically ill appearing, obese, uncomfortable Eyes: PERRL, anicteric sclera, EOMI Ears, Nose, Mouth, Throat: moist mucous membranes, hearing normal, ears appear normal Cardiovascular: irregularly irregular, edema Respiratory: no respiratory distress, clear to auscultation, reduced air movement Gastrointestinal: normoactive bowel sounds, no palpable masses, tenderness (Mild ) Skin: warm Musculoskeletal: no joint effusions, asymmetric calves, No pain with ROM, No muscular tenderness Neurologic: AAOx3, weakness Psychiatric: interacting appropriately, not anxious, not encephalopathic, thought process linear ICD10 Worksheet Patient Problems: Problems Problem Status Onset Atrial fibrillation Acute Pulmonary emboli Acute
[2017-04-28] MEDS ORDERED: BISACODYL 10 MG SUPP PR PRN (10:50)
[2017-04-28] MEDS ORDERED: LACTULOSE 20 GM/30 ML UDCUP PO PRN (10:50)
[2017-04-28] MEDS ORDERED: POLYETHYLENE GLYCOL 3350 17 GM PKT PO PRN (10:50)
[2017-04-28] MEDS: ACETAMINOPHEN 325 MG TAB PO PRN (11:43)
[2017-04-28] MEDS: HEPARIN/DEXTROSE 500 ML IV SCH ×2 (11:51→22:57)
[2017-04-28] MEDS: WARFARIN SODIUM 5 MG TAB PO SCH (15:24)
[2017-04-28] MEDS: SENNOSIDES/DOCUSATE SODIUM TAB PO SCH (19:42)
[2017-04-29 03:45] LABS: PLATELET COUNT 146 10^3/uL (150-400)
[2017-04-29 03:53] LABS: INR 1.35 (0.83-1.16); PROTIME(PATIENT) 16.7 SEC (12.0-15.0)
[2017-04-29] MEDS: SENNOSIDES/DOCUSATE SODIUM TAB PO SCH ×2 (07:27→20:10)
[2017-04-29] MEDS: NEBIVOLOL HCL 5 MG TAB PO SCH (07:28)
--- NOTE | 2017-04-29 08:55 | PDCONSULT ---
[place] Attorney Note: CC: Shortness of breath HPI: The patient is a 71 y/o M with a known h/o atrial fibrillation not on anticoagulation, who presented to the ED c/o SOB and flu-like symptoms and was found to have bilateral PE's and a L renal infarct. The patient was placed on anticoagulation and has Cr of 2.0 which improved to 1.6mg/dL today with normal baseline. He states that he has never had issues with renal disease in the past. No h/o HTN or DM. He admits he has known about his afib for 3 years, but felt that it was not "active". He is concerned about his exercise tolerance moving forward as he often rides his bike >50 miles per day. He admits to some issues of prostate symptoms in the past, however, thinks he has had normal exams with his PCP. Occasional NSAID use. Feeling improved today. at bedside. PMH: 1. Atrial fibrillation 2. Migraine headaches PSH: 1. Total knee arthroplasty Family Hx: DM sister, parents CAD Social: No use of ETOH, smoking, or drugs. , splits time between [place] and [place]. ROS: Negative except as above. Home Meds: Reviewed. Allergy: Pain medications as above. Objective: Temp Pulse Resp BP Pulse Ox 37.1 C 100 20 121/75 H 95 04/29/17 07:21 04/29/17 07:21 04/29/17 07:21 04/29/17 07:21 04/29/17 07:21 Physical Exam: GEN: A+O, obese, no distress HEENT: EOMI, MMM Neck: Supple, no thyromegaly CV: RRR, no murmurs RESP: Decrease, no crackles ABD: Soft, NT, mildly distended EXT: Trace edema NEURO: Non-focal Labs: WBC 11.65 10^3/uL (3.80-9.50) H 04/29/17 03:36 RBC 3.72 10^6/uL (4.40-6.38) L 04/29/17 03:36 Hgb 12.2 g/dL (13.7-17.5) L 04/29/17 03:36 Hct 35.0 % (40.0-51.0) L 04/29/17 03:36 MCV 94.1 fL (81.5-99.8) 04/29/17 03:36 MCH 32.8 pg (27.9-34.1) 04/29/17 03:36 MCHC 34.9 g/dL (32.4-36.7) 04/29/17 03:36 RDW 11.9 % (11.5-15.2) 04/29/17 03:36 Plt Count 146 10^3/uL (150-400) L 04/29/17 03:36 MPV 10.1 fL (8.7-11.7) 04/29/17 03:36 Neut % (Auto) 80.6 % (39.3-74.2) H 04/29/17 03:36 Lymph % (Auto) 9.4 % (15.0-45.0) L 04/29/17 03:36 [place] % (Auto) 8.2 % (4.5-13.0) 04/29/17 03:36 Eos % (Auto) 1.2 % (0.6-7.6) 04/29/17 03:36 Baso % (Auto) 0.3 % (0.3-1.7) 04/29/17 03:36 Nucleat RBC Rel Count 0.0 % (0.0-0.2) 04/29/17 03:36 Absolute Neuts (auto) 9.38 10^3/uL (1.70-6.50) H 04/29/17 03:36 Absolute Lymphs (auto) 1.10 10^3/uL (1.00-3.00) 04/29/17 03:36 Absolute Monos (auto) 0.96 10^3/uL (0.30-0.80) H 04/29/17 03:36 Absolute Eos (auto) 0.14 10^3/uL (0.03-0.40) 04/29/17 03:36 Absolute Basos (auto) 0.04 10^3/uL (0.02-0.10) 04/29/17 03:36 Absolute Nucleated RBC 0.00 10^3/uL (0-0.01) 04/29/17 03:36 Immature Gran % 0.3 % (0.0-1.1) 04/29/17 03:36 Immature Gran # 0.03 10^3/uL (0.00-0.10) 04/29/17 03:36 PT 16.7 SEC (12.0-15.0) H 04/29/17 03:36 INR 1.35 (0.83-1.16) H 04/29/17 03:36 APTT 171.0 SEC (23.0-38.0) H* D 04/26/17 07:25 D-Dimer > 20.00 ug/mLFEU (0.00-0.50) H 04/26/17 01:25 Heparin Anti-Xa, Unfract 0.31 IU/mL (0.32-0.67) L 04/29/17 03:36 VBG Lactic Acid 1.5 mmol/L (0.7-2.1) 04/26/17 02:45 Sodium 136 mEq/L (134-144) 04/29/17 03:36 Potassium 4.5 mEq/L (3.5-5.2) 04/29/17 03:36 Chloride 106 mEq/L (97-110) 04/29/17 03:36 Carbon Dioxide 25 mEq/l (22-31) 04/29/17 03:36 Anion Gap 5 mEq/L (8-16) L 04/29/17 03:36 BUN 18 mg/dL (7-23) 04/29/17 03:36 Creatinine 1.6 mg/dL (0.7-1.3) H 04/29/17 03:36 Estimated GFR 43 04/29/17 03:36 Glucose 113 mg/dL (70-100) H 04/29/17 03:36 Calcium 8.1 mg/dL (8.5-10.4) L 04/29/17 03:36 Magnesium 2.1 mg/dL (1.6-2.3) 04/26/17 07:25 Total Bilirubin 0.5 mg/dL (0.1-1.4) 04/26/17 01:25 Conjugated Bilirubin 0.3 mg/dL (0.0-0.5) 04/26/17 01:25 Unconjugated Bilirubin 0.2 mg/dL (0.0-1.1) 04/26/17 01:25 AST 23 IU/L (17-59) 04/26/17 01:25 ALT 29 IU/L (21-72) 04/26/17 01:25 Alkaline Phosphatase 87 IU/L (38-126) 04/26/17 01:25 Creatine Kinase 105 IU/L (0-224) 04/26/17 01:25 CK-MB (CK-2) Fraction 0.43 ng/mL (0.00-3.19) 04/26/17 01:25 Troponin I 0.021 ng/mL (0.000-0.034) 04/28/17 03:53 NT-Pro-B Natriuret Pep 7510 pg/mL (0-125) H 04/28/17 03:53 Total Protein 6.9 g/dL (6.3-8.2) 04/26/17 01:25 Albumin 4.1 g/dL (3.5-5.0) 04/26/17 01:25 Lipase 148 IU/L (23-300) 04/26/17 01:25 Urine Color YELLOW 04/26/17 08:00 Urine Appearance CLEAR 04/26/17 08:00 Urine pH 5.0 (5.0-7.5) 04/26/17 08:00 Ur Specific [place] > 1.035 (1.002-1.030) H 04/26/17 08:00 Urine Protein 1+ (NEGATIVE) H 04/26/17 08:00 Urine Ketones NEGATIVE (NEGATIVE) 04/26/17 08:00 Urine Blood 1+ (NEGATIVE) H 04/26/17 08:00 Urine Nitrate NEGATIVE (NEGATIVE) 04/26/17 08:00 Urine Bilirubin NEGATIVE (NEGATIVE) 04/26/17 08:00 Urine Urobilinogen NEGATIVE EU (0.2-1.0) 04/26/17 08:00 Ur Leukocyte Esterase NEGATIVE (NEGATIVE) 04/26/17 08:00 Urine RBC 5-10 /hpf (0-3) H 04/26/17 08:00 Urine WBC 1-3 /hpf (0-3) 04/26/17 08:00 Ur Epithelial Cells TRACE /lpf (NONE-1+) 04/26/17 08:00 Urine Mucus TRACE /lpf (NONE-1+) 04/26/17 08:00 Ur Random Creatinine 139.4 mg/dL 04/28/17 11:15 U Random Total Protein 97 mg/dL (0-11) H 04/28/17 11:15 Ur Random Sodium 74 mEq/L (30-90) 04/28/17 11:15 Urine Glucose NEGATIVE (NEGATIVE) 04/26/17 08:00 Urine Opiates Screen NON-NEGATIVE (NEGATIVE) H 04/26/17 08:00 Urine Barbiturates NEGATIVE (NEGATIVE) 04/26/17 08:00 Ur Phencyclidine Scrn NEGATIVE (NEGATIVE) 04/26/17 08:00 Ur Amphetamine Screen NEGATIVE (NEGATIVE) 04/26/17 08:00 U Benzodiazepines Scrn NEGATIVE (NEGATIVE) 04/26/17 08:00 Urine Cocaine Screen NEGATIVE (NEGATIVE) 04/26/17 08:00 U Marijuana (THC) Screen NEGATIVE (NEGATIVE) 04/26/17 08:00 Anti-Cardiolipin IgG Ab <9.4 GPL 04/26/17 07:25 Anti-Cardiolipin IgM Ab 15.7 MPL H 04/26/17 07:25 Imaging: Reviewed Assessment/Plan: The patient is a 71 y/o M with a known h/o atrial fibrillation not on coumadin who presented with bilateral pulmonary emboli and a left renal thrombus and infarct with TERRANCE to 2.0mg/dL now improved to 1.6mg/dL with hydration. -urine protein:cr about 700mg on spot -on anticoagulation with hematology work-up per primary team -hopeful that renal function may recover more -BP controlled on BB, hold CHAPO/ARB -echo reviewed -send A1C given obesity and family h/o DM -will arrange f/u for patient with [facility], card given to -consult appreciated, please contact if further questions
[2017-04-29] MEDS: APIXABAN 5 MG TAB PO SCH ×2 (09:54→19:27)
--- NOTE | 2017-04-29 10:45 | HOSPPROG ---
Hospitalist Progress Note Assessment/Plan: 70-year-old with a history of remote AFib, he had been in sinus rhythm and off anticoagulation for some time presents with shortness of breath and new onset AFib at [place]. He was found to have a DVT and PE and large subtotal left renal infarct. He did get IV contrast in a CT angiogram as well as an abdominal CT with contrast on admission. #. Bilateral LE DVT with PE - Patient was found to have a large volume PE and bilateral LE DVT's on ultrasound. Mild right heart strain was noted with elevated BNP and troponin. Had a long discussion with pt and re anticoagulants. He can use eliquis as renal function is stable now and weight normal, with age <80. * dc heparin and coumadin * start Eliquis * follow oxygen needs today and plan dc in am if stable * Pt and questions answered. # lacunar infarct noted on CT scan. MRI shows only WM changes without CVA, pt and reassured. #. Acute Hypoxic RF - secondary to PE. I weaned his oxygen down to 2L from 5L during my evaluation and he was able to tolerate this maintaining in the low 90' s. #. TERRANCE - Presumably secondary to renal infarction noted on CT of abdomen as well as contrast load given on admission. Creatinine values from 2015 and 2016 were WNL. Renal ultrasound shows no significant postvoid residual, evidence of clot in the renal artery. * decrease hydration and monitor creat in am, pt eating and drinking well. * appreciate nephro, will fu as outpatient * OK with renal function to change to NOAC #. Leukocytosis - likely from stress of infarct and pulmonary embolus, improving #. Afib - remote history of AFib status post cardioversion and had been in sinus rhythm until recently. * Anticoagulation with Eliquis * Continue Bystolic * Follow up with Dr. Moyer, reestablish care #. HTN - Bystolic Continue to follow. #. Dispo - Likely home in am. Subjective: greater than 50% of visit counseling and discussion re anticoagulation. no pain, feeling better today Objective: Vital Signs Temp Pulse Resp BP Pulse Ox 37.1 C 100 20 121/75 H 85 L 04/29/17 07:21 04/29/17 07:21 04/29/17 07:21 04/29/17 07:21 04/29/17 10:28 Microbiology 04/26/17 03:05 Blood Panel (PCR) - Final Blood Staph Coagulase Negative Laboratory Results 04/29/17 03:36 04/29/17 03:36 04/28/17 04/29/17 04/30/17 06:59 05:59 05:59 Intake Total Output Total Balance PT 16.7 SEC (12.0-15.0) H 04/29/17 03:36 INR 1.35 (0.83-1.16) H 04/29/17 03:36 - Time Spent With Patient Time Spent with Patient: greater than 35 minutes Time Spent with Patient: Greater than 35 minutes spent on this patients care, greater than 50% of time spent counseling, educating, and coordinating care regarding the above mentioned plan. - Physical Exam Constitutional: no apparent distress, obese Eyes: PERRL Ears, Nose, Mouth, Throat: moist mucous membranes Cardiovascular: edema Respiratory: no respiratory distress Skin: warm ICD10 Worksheet Patient Problems: Problems Problem Status Onset Atrial fibrillation Acute Pulmonary emboli Acute
--- NOTE | 2017-04-29 12:18 | ASMTCMCOM ---
CM Note CM Note Notes: The discharge plan continues to be home w/, no other needs identified. Date Signed: 04/29/2017 12:18 PM Electronically Signed By:Tere Hooks LCSW
[2017-04-29] MEDS: NS 1,000 ML IV SCH (13:44)
[2017-04-30] MEDS: OXYCODONE/APAP 5/325 TAB PO PRN (04:12)
[2017-04-30 05:15] LABS: PLATELET COUNT 203 10^3/uL (150-400)
[2017-04-30 08:06] VITALS: O2SAT 96
[2017-04-30] MEDS: NEBIVOLOL HCL 5 MG TAB PO SCH (08:33)
[2017-04-30] MEDS: APIXABAN 5 MG TAB PO SCH (08:33)
[2017-04-30] MEDS: SENNOSIDES/DOCUSATE SODIUM TAB PO SCH (08:33)
[2017-04-30 11:02] VITALS: BP 131/86; PULSE 107; RESP 20; TEMP 99.1
--- NOTE | 2017-04-30 11:14 | PDHOMEO2F ---
Home Oxygen Face to Face Home Orders: I certify that a physician or a nurse practitioner or physician's prosthetic assistant has had a [id number]-elfa encounter with this patient on the date of this order due to the diagnosis listed, which relates to the primary reason the patient requires home oxygen. Alternative treatments have been tried, or considered, and deemed ineffective. It is anticipated that supplemental oxygen will result in improvement with treatment. Home oxygen qualifying diagnosis: pulmonary emboli SpO2 on room air (%): 87% Frequency of home oxygen needed: continuous Home oxygen liters per minute: 3 lpm Home oxygen delivery device: nasal cannula Concentrator: Yes E-tanks for mobility and back up: Yes If ordering portable O2, is the patient mobile in the home?: Yes I certify that, based on these findings, the home oxygen is medically necessary for this patient for the following length of time. Length of time home oxygen needed: 1 month (Needs reevaluation)
--- NOTE | 2017-04-30 11:14 | PDHOMEO2F ---
Home Oxygen Face to Face Home Orders: I certify that a physician or a nurse practitioner or physician's practice assistant has had a [id number] encounter with this patient on the date of this order due to the diagnosis listed, which relates to the primary reason the patient requires home oxygen. Alternative treatments have been tried, or considered, and deemed ineffective. It is anticipated that supplemental oxygen will result in improvement with treatment. Home oxygen qualifying diagnosis: pulmonary emboli SpO2 on room air (%): 87% Frequency of home oxygen needed: continuous Home oxygen liters per minute: 3 lpm Home oxygen delivery device: nasal cannula Concentrator: Yes E-tanks for mobility and back up: Yes If ordering portable O2, is the patient mobile in the home?: Yes I certify that, based on these findings, the home oxygen is medically necessary for this patient for the following length of time. Length of time home oxygen needed: 1 month (Needs reevaluation)
--- NOTE | 2017-04-30 11:14 | PDHOMEO2F ---
Home Oxygen Face to Face Home Orders: I certify that a physician or a nurse practitioner or physician's resident programs assistant has had a [id number] encounter with this patient on the date of this order due to the diagnosis listed, which relates to the primary reason the patient requires home oxygen. Alternative treatments have been tried, or considered, and deemed ineffective. It is anticipated that supplemental oxygen will result in improvement with treatment. Home oxygen qualifying diagnosis: pulmonary emboli SpO2 on room air (%): 87% Frequency of home oxygen needed: continuous Home oxygen liters per minute: 3 lpm Home oxygen delivery device: nasal cannula Concentrator: Yes E-tanks for mobility and back up: Yes If ordering portable O2, is the patient mobile in the home?: Yes I certify that, based on these findings, the home oxygen is medically necessary for this patient for the following length of time. Length of time home oxygen needed: 1 month (Needs reevaluation)
--- NOTE | 2017-04-30 11:54 | GDS ---
[f rep st] DISCHARGE SUMMARY DIAGNOSES: 1. Large volume pulmonary embolism and deep vein thrombosis, currently anticoagulated with Eliquis. 2. Acute hypoxic respiratory failure secondary to pulmonary embolism, will need oxygen at the time o f discharge. 3. Subtotal renal infarction on left kidney due to thrombus in his renal artery, on anticoagulation with Eliquis. 4. Acute kidney injury, likely secondary to renal infarct. Creatinine 1.5 at the time of discharge. 5. Atrial fibrillation, rate controlled and anticoagulated with Eliquis currently. Will follow up w zaria Moyer to reestablish care. 6. Hypertension. PROCEDURES DONE: Include: 1. Chest and thoracic CT angiogram, large volume PE with some elevated right-sided pressures. 2. Lower extremity ultrasound, DVT in the popliteal calf bilaterally. 3. Abdominal CT, left renal infarction. 4. Brain MRI, no evidence of CVA, white matter changes. CONSULTATIONS: Include nephrology. HOSPITAL COURSE: The patient is a 71-year-old who came in with chest pain, shortness of breath. He was found to have a subtotal left renal infarction as well as bilateral pulmonary embolism and DVT. Evaluation included the above procedures and he was placed on anticoagulation initially with heparin due to acute renal injury. Over the course of his hospitalization, he was transitioned from heparin and Coumadin over to Eliquis per patient request. His renal function improved to a level of 1.5. Susi gonzáles did see him in the hospital to help establish care as an outpatient for ongoing chronic jazzmine l failure. He did have atrial fibrillation throughout his stay, which is likely chronic for him and is rate controlled with Bystolic and anticoagulated with Eliquis. He will reestablish care with Dr. Moyer as an outpatient. As far as his pulmonary embolism, those clots stabilized, and he has been doing well, requiring supplemental oxygen and will follow up with Dr. Perez. I did give him a card f or a 30 day supply of Eliquis and he also may need to get this prior authorized. He will also get alvarez pplemental oxygen and this will be followed as an outpatient. They plan on staying for a week in [facility] before transitioning down to [place] where they live for the winter. CONDITION ON DISCHARGE: Good. Vital signs are stable. He is alert and oriented. He has minimal pa in. Good urine output. DISCHARGE MEDICATIONS: Please see discharge medication form. New medications including bisoprolol 1 0 mg daily, Eliquis 5 mg twice b.i.d., and Percocet as needed for pain. FOLLOWUP INSTRUCTIONS: He needs to follow up with Dr. Perez. He has a scheduled appointment next danitza martinez. He needs follow up with Dr. Moyer for his atrial fibrillation and follow up with Nephrology fo r likely chronic renal insufficiency due to his renal infarct. I did give him a 1 month supply of th e new medications. He will need ongoing medication refills by Dr. Perez. Total time spent patient day of discharge and coordination of care is 35 minutes. /[id number]/MODL
== END 2017-04-30 14:04 | disposition home or self-care (01) | DRG 175 ==
LOC: EDUNIT# → F2W 04:05
PROVIDERS: ADMIT Family Medicine; ATTEND Family Medicine
DX: I26.99 Other pulmonary embolism without acute cor pulmonale (principal); J96.01 Acute respiratory failure with hypoxia; N25.0 Renal osteodystrophy; N17.9 Acute kidney failure, unspecified; Z96.653 Presence of artificial knee joint, bilateral; G43.909 Migraine, unspecified, not intractable, without status migrainosus; I10 Essential (primary) hypertension; Z87.891 Personal history of nicotine dependence
CPT/HCPCS: 80305; 85520-90; 86147-90; 96374; G0009; J1170; J1644; J2405; J3010; Q9967

== ENCOUNTER 2017-07-03 12:14 | Inpatient (IN) | payer OTHER ==
--- NOTE | 2017-07-03 12:30 | CPEKG ---
Heart Rate: 138 RR Interval: 435 QRSD Interval: 114 QT Interval: 348 QTC Interval: 528 QRS [place]: 102 T Wave [place]: -25 EKG Severity - ABNORMAL ECG - EKG Impression: ATRIAL FIBRILLATION, V-RATE 65-163 EKG Impression: INCOMPLETE RIGHT BUNDLE BRANCH BLOCK EKG Impression: BORDERLINE INFERIOR Q WAVES Electronically Signed By: Gm Tinsley 03-Jul-2017 12:57:03
--- NOTE | 2017-07-03 12:35 | EDPHY ---
H & P Stated Complaint: Chest pain Time Seen by Provider: 07/03/17 12:35 HPI/ROS: CHIEF COMPLAINT: Chest pressure HISTORY OF PRESENT ILLNESS: The patient presents to the ED with complaints of midsternal chest pressure which began earlier today. The patient has a history of recently diagnosed pulmonary emboli. He has a history of paroxysmal atrial fibrillation. He has been in atrial fibrillation since his diagnosis of PE several weeks ago. The patient is currently anticoagulated with Eliquis. The patient is also taking Bystolic. The patient has no history of coronary artery disease. He did report exercising fairly aggressively yesterday. The patient was not having symptoms of chest pain or shortness of breath yesterday with exercise. REVIEW OF SYSTEMS: A comprehensive 10 point review of systems is otherwise negative aside from elements mentioned in the history of present illness. Source: Patient - Personal History Current Tetanus/Diphtheria Vaccine: Unsure - Medical/Surgical History Hx Asthma: No Hx Chronic Respiratory Disease: No Hx Diabetes: No Hx Cardiac Disease: Yes Hx Renal Disease: No Hx Cirrhosis: No Hx Alcoholism: Yes Hx HIV/AIDS: No Hx Splenectomy or Spleen Trauma: No Other PMH: colitis, a-fib with CV by vicente/pe - Social History Smoking Status: Former smoker - Physical Exam Exam: General Appearance: Alert, no distress Eyes: Pupils equal and round no pallor or injection ENT, Mouth: Mucous membranes moist Respiratory: There are no retractions, lungs are clear to auscultation Cardiovascular: Irregular rate consistent with atrial fibrillation Gastrointestinal: Abdomen is soft and nontender, no masses, bowel sounds normal Neurological: A&O, normal motor function, normal sensory exam, normal cranial nerves Skin: Warm and dry, no rashes Musculoskeletal: Neck is supple nontender Extremities: symmetrical, full range of motion Constitutional: Initial Vital Signs Temperature (C) 37 C 07/03/17 12:16 Heart Rate 131 H 07/03/17 12:16 Respiratory Rate 20 07/03/17 12:16 Blood Pressure 139/98 H 07/03/17 12:16 O2 Sat (%) 97 07/03/17 12:16 O2 Delivery Mode Room Air Allergies/Adverse Reactions: hydrocodone Allergy (Severe, Verified 07/03/17 12:15) Other-Enter Comments morphine Allergy (Verified 07/03/17 12:15) Itching oxycodone [From OxyContin] Allergy (Verified 07/03/17 12:15) Other-Enter Comments Home Medications: Medication Instructions Recorded Ascorbic Acid [Vitamin C 500 mg 500 mg PO DAILY 04/26/17 (*)] [place]-3 Fatty Acids [Fish Oil 1000 1,000 mg PO DAILY 04/26/17 mg (*)] Apixaban [Eliquis] 5 mg PO BID #60 tab 04/30/17 Nebivolol HCl [Bystolic 5 mg (*)] 10 mg PO DAILY #60 tab 04/30/17 oxyCODONE/APAP 5/325 [Percocet 1 tab PO Q4HRS PRN #28 tab 04/30/17 5/325 (*)] Medical Decision Making - Diagnostics Imaging Results: Chest xray: Images reviewed by myself, no evidence of obvious heart failure. Mild cardiomegaly per my interpretation. ED Course/Re-evaluation: The patient presents to the emergency department with complaints of vague substernal chest pressure which began earlier today. The patient is noted to be in chronic atrial fibrillation which is rate controlled. He is currently anticoagulated with Eliquis. The patient does have a slightly elevated proBNP. The patient's initial troponin is normal. Given the unexplained nature of his chest pressure I do feel that he should be admitted to the hospital for serial cardiac enzymes and consideration of additional risk stratification. Consultation was made with the hospitalist service. He will be admitted by Dr. Montoya this evening. Serial enzymes will be obtained. I will defer to the hospitalist for determining the need for additional risk stratification. I re-evaluated the patient at 2:00 p.m.. He reports his pain is currently a 2/ 10. He is comfortable being admitted to the hospital for further risk stratification and serial enzymes. Differential Diagnosis: Differential diagnosis considered includes congestive heart failure, atrial fibrillation with rapid ventricular response, pneumonia, esophageal spasm, acute coronary syndrome - Data Points Laboratory Results: Laboratory Results 07/03/17 12:22 07/03/17 12:22 07/03/17 07/03/17 12:22 12:22 WBC 10.33 10^3/uL H 10^3/uL (3.80-9.50) RBC 4.77 10^6/uL 10^6/uL (4.40-6.38) Hgb 15.7 g/dL g/dL (13.7-17.5) Hct 44.9 % % (40.0-51.0) MCV 94.1 fL fL (81.5-99.8) MCH 32.9 pg pg (27.9-34.1) MCHC 35.0 g/dL g/dL (32.4-36.7) RDW 14.1 % % (11.5-15.2) Plt Count 201 10^3/uL 10^3/uL (150-400) MPV 10.7 fL fL (8.7-11.7) Neut % (Auto) 61.9 % % (39.3-74.2) Lymph % (Auto) 27.1 % % (15.0-45.0) [facility] % (Auto) 7.4 % % (4.5-13.0) Eos % (Auto) 2.9 % % (0.6-7.6) Baso % (Auto) 0.4 % % (0.3-1.7) Nucleat RBC Rel Count 0.0 % % (0.0-0.2) Absolute Neuts (auto) 6.40 10^3/uL 10^3/uL (1.70-6.50) Absolute Lymphs (auto) 2.80 10^3/uL 10^3/uL (1.00-3.00) Absolute Monos (auto) 0.76 10^3/uL 10^3/uL (0.30-0.80) Absolute Eos (auto) 0.30 10^3/uL 10^3/uL (0.03-0.40) Absolute Basos (auto) 0.04 10^3/uL 10^3/uL (0.02-0.10) Absolute Nucleated RBC 0.00 10^3/uL 10^3/uL (0-0.01) Immature Gran % 0.3 % % (0.0-1.1) Immature Gran # 0.03 10^3/uL 10^3/uL (0.00-0.10) Sodium 147 mEq/L H mEq/L (134-144) Potassium 5.2 mEq/L mEq/L (3.5-5.2) Chloride 109 mEq/L mEq/L (97-110) Carbon Dioxide 21 mEq/l L mEq/l (22-31) Anion Gap 17 mEq/L H mEq/L (8-16) BUN 30 mg/dL H mg/dL (7-23) Creatinine 1.7 mg/dL H mg/dL (0.7-1.3) Estimated GFR 40 Glucose 90 mg/dL mg/dL (70-100) Calcium 9.7 mg/dL mg/dL (8.5-10.4) Troponin I < 0.012 ng/mL ng/mL (0.000-0.034) NT-Pro-B Natriuret Pep 3610 pg/mL H pg/mL (0-125) Departure - Departure Disposition: [facility] Inpatient Acute Clinical Impression: Chest pain, Atrial fibrillation, Pulmonary emboli Condition: Good Referrals: Adolph Perez MD [Primary Care Provider] - As per Instructions
[2017-07-03 12:47] LABS: PLATELET COUNT 201 10^3/uL (150-400)
[2017-07-03] MEDS ORDERED: APIXABAN 5 MG TAB PO ONE (13:21)
[2017-07-03] MEDS ORDERED: NEBIVOLOL HCL 5 MG TAB PO SCH (13:30)
[2017-07-03] MEDS ORDERED: MAG HYDROX/AL HYDROX/SIMETH 30 ML UDCUP PO ONE ×2 (13:31→15:50)
[2017-07-03] MEDS ORDERED: LIDOCAINE 2% VISCOUS 15 ML UDCUP PO ONE ×2 (13:31→15:50)
[2017-07-03] MEDS ORDERED: HYOSCYAMINE SULFATE 0.125 MG TAB PO ONE ×2 (13:31→15:50)
[2017-07-03] MEDS ORDERED: NITROGLYCERIN 0.4 MG BTL SL ONE ×2 (15:07→15:09)
[2017-07-03] MEDS ORDERED: ONDANSETRON DISINTEGRATING 4 MG TAB PO PRN (15:17)
[2017-07-03] MEDS ORDERED: ONDANSETRON 4 MG/2 ML VIAL IVP PRN (15:17)
[2017-07-03] MEDS ORDERED: HYDROmorphONE/DILAUDID 1 MG/ML INJ IVP ONE ×2 (15:19→18:30)
[2017-07-03] MEDS ORDERED: HYDROmorphONE/DILAUDID 1 MG/ML INJ ONE (15:20)
[2017-07-03] MEDS ORDERED: NS 1,000 ML IV ONE (15:24)
--- NOTE | 2017-07-03 15:27 | CPEKG ---
Heart Rate: 122 RR Interval: 492 QRSD Interval: 116 QT Interval: 368 QTC Interval: 525 QRS [place]: 106 T Wave [place]: -31 EKG Severity - ABNORMAL ECG - EKG Impression: ATRIAL FIBRILLATION, V-RATE 82-161 EKG Impression: RBBB AND LPFB Electronically Signed By: Issac Abdi 04-Jul-2017 10:58:08
[2017-07-03] MEDS ORDERED: NS 1,000 ML IV SCH (15:30)
[2017-07-03] MEDS ORDERED: HYOSCYAMINE SULFATE 0.125 MG TAB ONE (15:53)
[2017-07-03] MEDS ORDERED: MAG HYDROX/AL HYDROX/SIMETH 30 ML UDCUP ONE (15:53)
[2017-07-03] MEDS ORDERED: LIDOCAINE 2% VISCOUS 15 ML UDCUP ONE (15:53)
--- NOTE | 2017-07-03 15:56 | GHP ---
[f rep st] HISTORY AND PHYSICAL DATE OF ADMISSION: 07/03/2017 CHIEF COMPLAINT: Chest pain. HISTORY OF PRESENT ILLNESS: This is a 72-year-old male who has a remote history of atrial fibrillati on. He was cardioverted 3 years ago and has had no problems since. Last April, he developed a fa irly large pulmonary embolism and went back into atrial fibrillation. He has been treated with Eliqu is since then. However, he complains that he has had much decreased exercise tolerance. He says his heart rate goes up with minimal exercise to the 170s. He has had some fatigue. However today, he d eveloped some midsternal chest pressure that has been associated with some nausea and shortness of br eath. This continued throughout the day and then by the time he came to the emergency department, se emed to be waning. He was given a GI cocktail, which seemed to eliminate it completely. He says the pain is worse with inspiration, but it is not sharp. He denies any fevers, chills, cough . REVIEW OF SYSTEMS: A 10-point review of systems was obtained and, other than stated, was negative. PAST MEDICAL HISTORY: 1. Atrial fibrillation status post cardioversion in 2013. 2. Pulmonary embolism in April of 2017. This was also associated with a renal infarct. 3. Chronic kidney disease, which is probably due to the renal infarct. MEDICATIONS: Reviewed. SOCIAL HISTORY: No smoking. 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 FAMILY HISTORY: Parents had heart disease in their 60s. PHYSICAL EXAM: VITAL SIGNS: Afebrile, blood pressure is 117/84, heart rate about 100 but also goes up to the 130s to 140s when talking during our interview, 92% in room air. GENERAL: The patient is well-developed, in no apparent distress. HEENT: Nonicteric sclerae. Extraocular movements intact. Moist mucous membranes. NECK: Supple. No thyromegaly. LUNGS: Good effort. Clear to auscultatio n bilaterally. CARDIOVASCULAR: Tachycardic, irregularly irregular. No murmurs, rubs, or gallops. ABDOMEN: Positive bowel sounds, soft, nontender, nondistended. No hepatosplenomegaly. EXTREMITIES: No clubbing, cyanosis or edema. SKIN: Without rash. Warm and dry, intact. NEUROLOGIC: Alert an d oriented x3. Moving all 4 extremities equally. PSYCH: Normal mood and affect. LABS: CBC is essentially normal. White count is slightly elevated at 10, although this has been josie t way in the past. Sodium is 147, potassium 5.2, BUN is 30 with a creatinine of 1.7. Troponin is ne gative. IMAGING: EKG personally reviewed and interpreted. It shows atrial fibrillation with a rapid ventric ular response. There is an incomplete right bundle branch block. Chest x-ray personally reviewed an d interpreted, is clear. ASSESSMENT: This is a 72-year-old male who has a history of atrial fibrillation and pulmonary emboli sm, presenting with chest pressure and atrial fibrillation with a rapid ventricular response. PLAN: 1. Chest pain. His initial troponin is negative. We will cycle troponins. I think he did have a s tress test several years ago. It does not sound particularly cardiac. He did get better with a GI c ocktail. His pain seems to be a little bit pleuritic and although it is not sharp, makes me a little bit concerned for recurrent pulmonary embolism. I have seen failures of Eliquis. However, his crea tinine is 1.7 and would not necessarily martin to CT at this time. I would like to hydrate him some, s ee what troponins do and if the pain remains persistent. I have also discussed the case with Jimmie ambriz and will see if they want to get a stress test in the morning. I am not sure if that would be pr ioritized over possible cardioversion from his atrial fibrillation. 2. Atrial fibrillation with a rapid ventricular response. The patient's rate does not seem to be we ll controlled in the last month or so. He seemed to have done well with cardioversion before. I hav e talked to Cardiology to consider possible cardioversion tomorrow. [facility] 3. Recent pulmonary embolism. Will continue Eliquis for now. 4. Chronic kidney disease. Will give IV fluids. /[id number]/MODL
[2017-07-03] MEDS ORDERED: DILTIAZEM 125 MG in D5W 125 ML IV SCH (17:00)
[2017-07-03] MEDS ORDERED: DILTIAZEM HCL/D5W 125 ML IV SCH (17:00)
[2017-07-03] MEDS ORDERED: HYDROmorphONE/DILAUDID 2 MG/ML INJ ONE (18:04)
[2017-07-03] MEDS: HYDROmorphONE/DILAUDID 1 MG/ML INJ IVP PRN ×2 (19:48→21:47)
[2017-07-03] MEDS: APIXABAN 5 MG TAB PO SCH (21:45)
[2017-07-04] MEDS: HYDROmorphONE/DILAUDID 1 MG/ML INJ IVP PRN ×4 (01:08→08:43)
[2017-07-04 04:02] LABS: PLATELET COUNT 157 10^3/uL (150-400)
[2017-07-04] MEDS: APIXABAN 5 MG TAB PO SCH ×2 (08:30→20:57)
[2017-07-04] MEDS: NEBIVOLOL HCL 5 MG TAB PO SCH (08:31)
--- NOTE | 2017-07-04 10:29 | PDCARCONS ---
Cardiology Consult Reason for Consult: chest pains with associated atrial fibrillation Chief Complaint: chest pains (substernal) Requesting Physician: Hospitalist Team History of Present Illness: Patient is a 71 y/o male with history of atrial fibrillation s/p cardioversion in 2013 (successful per reports), ulcerative colitis, and large volume thrombus event (arterial and venous) in April 2017, where upon left kidney infarction was noted (and ultimately results in renal insufficiency), who presents to [facility] after complaints of chest discomfort were voiced. Discomfort is a pain with severity to 6/10 reported. There is radiation in the sternal region up into the jaw. No radiation into the shoulder was noted. Since the PE/DVT in the Fall of 2016, the patient has been on uninterrupted Eliquis therapy. No PND or orthopnea has been noted. No fevers or chills. Patient was seen by my partner , Dr. Petr Moyer, in mid April 2017, after the aforementioned hospitalization. was present today, at bedside with the patient. On telemetry, heart rates are generally controlled (<100 bpm), and blood pressure was not elevated. Chest pains continue to be noted today. Patient felt that the chest pains started when playing with grandchildren, and continued to be noted (he did not awaken with symptoms yesterday). No cardiac biomarker elevation has been noted (three sets completed), and no ST/T wave changes were noted on ECG. Echocardiography in the past (about two months ago) without gross pathology known to patient. Patient/ could not recall the last time a stress test was performed. Remainder of the 12 point review of systems was unremarkable. History Information - Allergies/Home Medication List Allergies/Adverse Reactions: hydrocodone Allergy (Severe, Verified 07/03/17 12:15) Other-Enter Comments morphine Allergy (Verified 07/03/17 12:15) Itching oxycodone [From OxyContin] Allergy (Verified 07/03/17 12:15) Other-Enter Comments Home Medications: Ascorbic Acid [Vitamin C 500 mg (*)] 500 mg PO DAILY 04/26/17 [Last Taken ] I have personally reviewed and updated: family history, medical history, social history, surgical history Past Medical History: - Past Medical History atrial fibrillation, DVT, pulmonary embolism - Surgical History Additional surgical history: bilateral knee surgeries - Family History Positive for: non-pertinent - Social History Smoking Status: Former smoker Alcohol Use: Sober (for about 8 years at present) Drug Use: None Cardiac History - Cardiac History Cardiac Risk Factors: age > 65, male Timing/Duration: Days Severity: moderate Severity Scale: 5 Location: substernal, central, epigastric Activities at Onset: activity Modifying Factors: improves with: oxygen, rest Associated Symptoms: chest pain, shortness of breath RAJANI Risk Evaluation age greater or equal to 65: yes greater or equal to 3 CAD risk factors: no known CAD(stenosis greater or eqaul to 50%): no ASA use in past 7 days: no severe angina(greater or equal to 2 episodes in 24hrs): yes EKG ST changes greater or equal to 0.5mm: no positive cardiac marker: no Total Score: 2 RAJANI Score: 8.3% risk Physical Exam Physical Exam: Temp Pulse Resp BP Pulse Ox 36.2 C 98 20 117/94 H 92 07/04/17 07:11 07/04/17 07:11 07/04/17 07:11 07/04/17 07:11 07/04/17 07:11 O2 (L/minute) 2 Constitutional: appears nourished, obese, uncomfortable Eyes: PERRL Ears, Nose, Mouth, Throat: moist mucous membranes, hearing normal Cardiovascular: no murmur, rub, or gallop, irregularly irregular, pulses symmetric bilaterally, No JVD Peripheral Pulses: 2+: dorsalis-pedis (R), dorsalis-pedis (L) Respiratory: no respiratory distress, no rales or rhonchi, clear to auscultation Gastrointestinal: normoactive bowel sounds Skin: warm Musculoskeletal: full muscle strength, no muscle tenderness Neurologic: AAOx3, sensation intact bilaterally, CN II-XII Intact Psychiatric: interacting appropriately, not anxious, not encephalopathic Lab and Imaging 07/04/17 03:40 07/04/17 03:40 WBC 11.66 10^3/uL (3.80-9.50) H 07/04/17 03:40 RBC 3.84 10^6/uL (4.40-6.38) L 07/04/17 03:40 Hgb 12.5 g/dL (13.7-17.5) L 07/04/17 03:40 Hct 35.9 % (40.0-51.0) L 07/04/17 03:40 MCV 93.5 fL (81.5-99.8) 07/04/17 03:40 MCH 32.6 pg (27.9-34.1) 07/04/17 03:40 MCHC 34.8 g/dL (32.4-36.7) 07/04/17 03:40 RDW 14.3 % (11.5-15.2) 07/04/17 03:40 Plt Count 157 10^3/uL (150-400) 07/04/17 03:40 MPV 10.6 fL (8.7-11.7) 07/04/17 03:40 Neut % (Auto) 74.9 % (39.3-74.2) H 07/04/17 03:40 Lymph % (Auto) 13.5 % (15.0-45.0) L 07/04/17 03:40 [place] % (Auto) 10.7 % (4.5-13.0) 07/04/17 03:40 Eos % (Auto) 0.2 % (0.6-7.6) L 07/04/17 03:40 Baso % (Auto) 0.3 % (0.3-1.7) 07/04/17 03:40 Nucleat RBC Rel Count 0.0 % (0.0-0.2) 07/04/17 03:40 Absolute Neuts (auto) 8.74 10^3/uL (1.70-6.50) H 07/04/17 03:40 Absolute Lymphs (auto) 1.57 10^3/uL (1.00-3.00) 07/04/17 03:40 Absolute Monos (auto) 1.25 10^3/uL (0.30-0.80) H 07/04/17 03:40 Absolute Eos (auto) 0.02 10^3/uL (0.03-0.40) L 07/04/17 03:40 Absolute Basos (auto) 0.03 10^3/uL (0.02-0.10) 07/04/17 03:40 Absolute Nucleated RBC 0.00 10^3/uL (0-0.01) 07/04/17 03:40 Immature Gran % 0.4 % (0.0-1.1) 07/04/17 03:40 Immature Gran # 0.05 10^3/uL (0.00-0.10) 07/04/17 03:40 D-Dimer 0.43 ug/mLFEU (0.00-0.50) 07/03/17 12:30 Sodium 136 mEq/L (135-145) 07/04/17 03:40 Potassium 4.9 mEq/L (3.5-5.2) 07/04/17 03:40 Chloride 106 mEq/L (97-110) 07/04/17 03:40 Carbon Dioxide 20 mEq/l (22-31) L 07/04/17 03:40 Anion Gap 10 mEq/L (8-16) 07/04/17 03:40 BUN 25 mg/dL (7-23) H 07/04/17 03:40 Creatinine 1.7 mg/dL (0.7-1.3) H 07/04/17 03:40 Estimated GFR 40 07/04/17 03:40 Glucose 138 mg/dL (70-100) H 07/04/17 03:40 Calcium 8.1 mg/dL (8.5-10.4) L D 07/04/17 03:40 Total Bilirubin 1.1 mg/dL (0.1-1.4) 07/04/17 03:40 AST 25 IU/L (17-59) 07/04/17 03:40 ALT 66 IU/L (21-72) 07/04/17 03:40 Alkaline Phosphatase 51 IU/L (38-126) 07/04/17 03:40 Troponin I < 0.012 ng/mL (0.000-0.034) 07/04/17 00:10 NT-Pro-B Natriuret Pep 3610 pg/mL (0-125) H 07/03/17 12:22 Total Protein 5.8 g/dL (6.3-8.2) L 07/04/17 03:40 Albumin 3.3 g/dL (3.5-5.0) L 07/04/17 03:40 Nasal Influenza A PCR NEGATIVE FOR FLU A (NEGATIVE) 07/03/17 19:55 Nasal Influenza B PCR NEGATIVE FOR FLU B (NEGATIVE) 07/03/17 19:55 Visualized and Interpreted Chest x-ray results: Yes Chest X-ray Interpretation: other (findings concerning for congestive heart failure) Visualized and Interpreted EKG results: Yes EKG additional interpertation: atrial fibrillation with rapid ventricular response Telemetry: atrial fibrillation with controlled ventricular response Echocardiogram: pending A/P Assessment: Patient is a 72 y/o male with history of atrial fibrillation and successful cardioversion in the past (2013), but revisitation of the arrhythmia in the Fall of 2016 as well as significant thrombus burden (PE and DVT with renal infarction and subsequent renal insufficiency), who presented to [facility] with complaints of chest pains. No cardiac biomarker elevation has been noted. No ST/T wave changes have been noted. Uninterrupted Eliquis therapy. Initially, there was desire for the patient to have cardioversion with possible LINO, but of more concern is the ongoing chest pains that are voiced by the patient. Plan: Recommendations for patient to have echocardiography for assessment of wall motion, chamber dimensions, and valve morphology as well as potential, non invasive, non nuclear assessment of the aorta (given concerns on the part of the patient for aneurysm). Would prefer this imaging modality over CT with contrast given the patient's renal insufficiency. Would maintain therapy on Eliquis for the time being. Diltiazem and Bystolic should continue for HTN control assistance, as well as some degree of rate control. Cardioversion can be performed whenever, but the complaints of chest pains are of more concern acutely.
--- NOTE | 2017-07-04 12:29 | ECHO ---
[email or web address] [address] Main: [phone] Fax: Transthoracic Echocardiogram Name: DAY CALERO MR#: [id number] Study Date: 07/04/2017 Study Time: 10:11 AM Date of : 1945 Age: 72 year(s) Height: 175.3 cm (69 in.) Weight: 100.7 kg (222 lb.) BSA: 2.16 m2 Gender: Male Examination: Echo Indication: New onset Atrial fibrillation Image Quality: Contrast: Requested by: Art Snyder BP: 117 mmHg/94 mmHg Heart Rate: Rhythm: Atrial fibrillation Indication: New onset Atrial fibrillation Procedure Staff Director Financial Planning: Jake Abbott Reading Physician: Art Snyder Requesting Provider: Conclusions: Normal size left ventricle. No LV hypertrophy. Low normal left ventricular systolic function. EF is 49 %. The rhythm is atrial fibrillation.. Normal size right ventricle. The left atrium is severely dilated. The right atrium is moderately dilated. Mild mitral valve regurgitation is present. The aortic valve is tri-leaflet and functions normally. The pulmonary artery pressure is mildly increased. There is no obvious dissection from the aortic arch views or ascending AO.. Measurements: Chambers Valvular Assessment AV/MV Valvular Assessment TV/PV Normal Normal Normal Name Value Range Name Value Range Name Value Range Ao Isabel (MM): 3.7 cm (2.2 cm-3.7 AV Vmax: 0.81 m/s (1 m/s-1.7 TR Vmax: 2.76 mm/s ( - ) cm) m/s) TR PGmax: 30 mmHg ( - ) IVSd (2D): 1.0 cm (0.6 cm-1.1 AV maxP mmHg ( - ) syst. PAP: 35 mmHg ( - ) cm) LVOT Vmax: 0.70 m/s (0.7 m/s-1.1 PV Vmax: 0.92 m/s (0.6 m/s-0.9 LVDd (2D): 5.0 cm (4.2 cm-5.9 m/s) m/s) cm) MV E Vmax: 0.70 m/s ( - ) PV PGmax: 3 mmHg ( - ) LVDs (2D): 3.5 cm (2.1 cm-4 cm) LVPWd (2D): 1.2 cm (0.6 cm-1 cm) LVEF (BP): 49 % (>=55 %) Continued Measurements: Patient: DAY CALERO Study Date: 07/04/2017 Page 1 of 2 10:11 AM Chambers Valvular Assessment AV/MV Valvular Assessment TV/PV Name Value Name Value Name Value LADs Lon.9 cm MV E/E' Septal: 8.90 CVP (est.): 5 mmHg LA Area: 31.4 cm2 MV E/E' Lateral: 5.00 LA Volume: 111 ml LA Volume Index: 51.4 ml/m2 Findings: Left Ventricle: Normal size left ventricle. No LV hypertrophy. Low normal left ventricular systolic function. EF is 49 %. The rhythm is atrial fibrillation.. Right Ventricle: Normal size right ventricle. Left Atrium: The left atrium is severely dilated. Right Atrium: The right atrium is moderately dilated. Mitral Valve: Mild mitral valve leaflet calcification is present. Mild mitral valve regurgitation is present. Aortic Valve: The aortic valve is tri-leaflet and functions normally. Tricuspid Valve: Mild tricuspid regurgitation is present. The pulmonary artery pressure is mildly increased. Pulmonic Valve: Pulmonary valve not well visualized. Aorta: The aorta is normal. Pericardium: No pericardial effusion. Exam Comments: There is no obvious dissection from the aortic arch views or ascending AO.. (No Signature Object) Patient: DAY CALERO Study Date: 07/04/2017 Page 2 of 2 10:11 AM [id number]
--- NOTE | 2017-07-04 14:51 | ASMTCMCOM ---
CM Note CM Note Notes: Patient admitted for chest pain and decreased activity tolerance. Cardiology consult today recommends echocardiography and possible cardioversion with LINO. Patient lives with and is normally independent. I do not anticipate any discharge needs, but Case Management is available if any arise. Date Signed: 07/04/2017 02:51 PM Electronically Signed By:Carmen Christensen RN
[2017-07-04] MEDS ORDERED: FUROSEMIDE 40 MG/4 ML VIAL IVP ONE (16:04)
--- NOTE | 2017-07-04 16:05 | HOSPPROG ---
Hospitalist Progress Note Assessment/Plan: 72 yo M w AF, h/o VTE here w cp CP: uncertain cause trop neg, ekg non ischemic (interp by me) improved d dimer neg and has been on eliquis AF: has been rapid as outpt currently improved on dilt gtt 1. add digoxin 2. diurese 3. wean dilt gtt 4. continue eliquis 5. 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 control AF 2. diurese h/o VTE: neg d dimer ?cad: stress after diuresed or as outpt CKD; cr at baseline proph: anticoagulated Subjective: case d/w dr andrew. cxr w chf (interp by me). notes frequent AF w RVR over last two months Objective: Vital Signs Temp Pulse Resp BP Pulse Ox 36.7 C 84 21 H 109/75 90 L 07/04/17 15:02 07/04/17 15:02 07/04/17 15:02 07/04/17 15:02 07/04/17 15:02 Laboratory Results 07/04/17 03:40 07/04/17 03:40 07/03/17 07/04/17 07/05/17 05:59 05:59 05:59 Intake Total 2311 90 Output Total 50 Balance 2261 90 - Physical Exam Constitutional: no apparent distress, appears nourished, not in pain Eyes: PERRL, anicteric sclera Ears, Nose, Mouth, Throat: moist mucous membranes, hearing normal Cardiovascular: regular rate and rhythym, no murmur, rub, or gallop, irregularly irregular, edema Respiratory: no respiratory distress, other (crackles) Gastrointestinal: normoactive bowel sounds, soft, non-tender abdomen Genitourinary: No acevedo in urethra Skin: warm, normal color Musculoskeletal: full muscle strength, no muscle tenderness Neurologic: AAOx3 ICD10 Worksheet Patient Problems: Problems Problem Status Onset Atrial fibrillation Acute Chest pain Acute Pulmonary emboli Acute
[2017-07-04] MEDS: DIGOXIN 125 MCG TAB PO SCH (16:35)
--- NOTE | 2017-07-04 19:05 | PDMN ---
Medical Necessity Medical necessity: Pt meets INPT criteria per MD as of 07/04/17 and MCG M-505 Atrial Fibrillation (afib/ongoing rapid ventricular response requiring dilt gtt , addition of digoxin, IV lasix; with acute systolic CHF; hx recent PE, CKD).
[2017-07-04] MEDS ORDERED: DIGOXIN 125 MCG TAB PO ONE (20:03)
[2017-07-05] MEDS: FUROSEMIDE 40 MG/4 ML VIAL IVP SCH ×2 (08:14→14:30)
[2017-07-05] MEDS: ACETAMINOPHEN 325 MG TAB PO PRN ×2 (08:14→21:02)
[2017-07-05] MEDS: DIGOXIN 125 MCG TAB PO SCH (08:14)
[2017-07-05] MEDS: APIXABAN 5 MG TAB PO SCH ×2 (08:14→20:54)
[2017-07-05] MEDS: NEBIVOLOL HCL 5 MG TAB PO SCH (08:14)
--- NOTE | 2017-07-05 10:30 | PDCARPN ---
Cardiology Progress Note Chief Complaint: This morning, no cardiovascular complaints, but at about 4 am, the patient had sharp chest pains noted Assessment/Plan: Assessment: 07-05-17 Patient doing well today, but did have an episode of chest pains noted at about 0400 this morning. Echocardiography yesterday for assessment of LVEF, wall motion, and aortic morphology, was notable for mild reduction in systolic function (50% - query presence of atrial fibrillation) and no aortic pathology ( dissection or dilation not noted). was present with the patient today. Trial on Digoxin to assist with better rate control of atrial fibrillation. Ongoing use of anticoagulation for CVA and DVT/PE prophylaxis given the history of atrial fibrillation as well as heavy thrombus burden in the fall. Ongoing use of Eliquis therapy. 07-04-17 Patient is a 71 y/o male with history of atrial fibrillation s/p cardioversion in 2013 (successful per reports), ulcerative colitis, and large volume thrombus event (arterial and venous) in April 2017, where upon left kidney infarction was noted (and ultimately results in renal insufficiency), who presents to [facility] after complaints of chest discomfort were voiced. Discomfort is a pain with severity to 6/10 reported. There is radiation in the sternal region up into the jaw. No radiation into the shoulder was noted. Since the PE/DVT in the fall, the patient has been on uninterrupted Eliquis therapy. No PND or orthopnea has been noted. No fevers or chills. Patient was seen by my partner , Dr. Petr Moyer, in mid April 2017, after the aforementioned hospitalization. was present today, at bedside with the patient. On telemetry, heart rates are generally controlled (<100 bpm), and blood pressure was not elevated. Chest pains continue to be noted today. Patient felt that the chest pains started when playing with grandchildren, and continued to be noted (he did not awaken with symptoms yesterday). No cardiac biomarker elevation has been noted (three sets completed), and no ST/T wave changes were noted on ECG. Echocardiography in the past (about two months ago) without gross pathology known to patient. Patient/ could not recall the last time a stress test was performed. Plan: (1) Would continue with planned diuresis today (2) Maintain therapy on Eliquis for CVA prophylaxis as well as DVT/PE prophylaxis given the patient's extensive thrombus burden (3) Consider switch from Bystolic to older version of beta evangelina given the lack of heart rate suppression that is noted with Bystolic (4) Continue digoxin as at present (5) Diltiazem should continue for HTN and rate control assistance as well (6) Cardioversion can be done, but patient in need of MPI testing given the symptoms voiced and the CV risks noted - would arrange for this tomorrow - no coffee or tea in the AM! Subjective: Earlier this morning, the patient had a bout of chest pain Reviewed/Discussed With: family, hospitalist, multidisciplinary team Objective: Vital Signs (8 Hrs) Temp Pulse Resp BP Pulse Ox 07/05/17 07:35 36.7 C 106 H 17 119/75 92 07/05/17 04:00 36.9 C 81 18 107/71 92 Intake/Output (24 Hrs) 07/04/17 07/05/17 07/06/17 05:59 05:59 05:59 Intake Total 200 Output Total 600 200 Balance -400 -200 Intake: Oral (ml) 200 Output: Urine (ml) 600 200 Urinal 600 200 Other: Number of Voids Urinal 2 Result Diagrams: 07/04/17 03:40 07/04/17 03:40 EKG: atrial fibrillation Telemetry: atrial fibrillation Echocardiogram: low normal LVEF without aneurysm or dissection noted - Physical Exam Constitutional: WDWN, healthy appearing, no apparent distress Eyes: PERRL, EOMI Ears, Nose, Mouth, Throat: moist mucous membranes Cardiovascular: no murmurs, no rubs, irregularly irregular Peripheral Pulses: 2+: dorsalis-pedis (R), dorsalis-pedis (L) Respiratory: clear to auscultate bilat, no crackles, no wheezes Gastrointestinal: normoactive bowel sounds Skin: no rashes, no edema Musculoskeletal: no muscular tenderness Neurologic: AAOx3, CN II-XII grossly intact Psychiatric: cooperative, interactive, following commands ICD10 Worksheet Patient Problems: Problems Problem Status Onset Atrial fibrillation Acute Chest pain Acute Pulmonary emboli Acute
--- NOTE | 2017-07-05 11:40 | HOSPPROG ---
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 control AF 2. diurese h/o VTE: neg d dimer ?cad: stress after diuresed or as outpt CKD; cr at baseline proph: anticoagulated Subjective: case d/w dr andrew. tele: af, mostly greater than 100 (interp by me ) Objective: Vital Signs Temp Pulse Resp BP Pulse Ox 36.7 C 106 H 17 119/75 92 07/05/17 07:35 07/05/17 07:35 07/05/17 07:35 07/05/17 07:35 07/05/17 07:35 07/04/17 07/05/17 07/06/17 05:59 05:59 05:59 Intake Total 200 Output Total 600 200 Balance -400 -200 - Physical Exam Constitutional: no apparent distress, appears nourished Eyes: PERRL, anicteric sclera Ears, Nose, Mouth, Throat: moist mucous membranes, hearing normal Cardiovascular: no murmur, rub, or gallop, irregularly irregular, edema Respiratory: no respiratory distress, inspiratory crackles Gastrointestinal: normoactive bowel sounds, soft, non-tender abdomen Genitourinary: no bladder fullness, no bladder tenderness Skin: warm, normal color Musculoskeletal: full muscle strength Neurologic: AAOx3 ICD10 Worksheet Patient Problems: Problems Problem Status Onset Atrial fibrillation Acute Chest pain Acute Pulmonary emboli Acute
[2017-07-05] MEDS: METOPROLOL TARTRATE 25 MG TAB PO SCH ×2 (12:02→20:54)
[2017-07-06] MEDS: HYDROmorphONE/DILAUDID 1 MG/ML INJ IVP PRN (01:22)
[2017-07-06] MEDS ORDERED: REGADENOSON 0.4 MG/5 ML SYR IVP ONE (08:57)
[2017-07-06] MEDS ORDERED: ATROPINE SULFATE 1 MG/10 ML SYR IVP ONE (11:14)
[2017-07-06] MEDS ORDERED: NS 1,000 ML IV ONE (11:14)
[2017-07-06] MEDS: FUROSEMIDE 40 MG/4 ML VIAL IVP SCH ×2 (11:19→16:51)
[2017-07-06] MEDS: METOPROLOL TARTRATE 25 MG TAB PO SCH ×4 (11:30→21:11)
[2017-07-06] MEDS: APIXABAN 5 MG TAB PO SCH ×2 (11:31→21:11)
[2017-07-06] MEDS: DIGOXIN 125 MCG TAB PO SCH (11:31)
--- NOTE | 2017-07-06 11:54 | CPEKG ---
Heart Rate: 112 RR Interval: 536 QRSD Interval: 126 QT Interval: 364 QTC Interval: 497 QRS [place]: 107 T Wave [place]: -35 EKG Severity - ABNORMAL ECG - EKG Impression: ATRIAL FIBRILLATION, V-RATE 74-167 EKG Impression: RBBB AND LPFB Electronically Signed By: Chucky Pimentel 06-Jul-2017 12:35:13
--- NOTE | 2017-07-06 13:10 | PDCARST ---
CAR Stress Test Results Type of Stress Test: Lexiscan stress test Indication: cp Description of Procedure: After informed consent was obtained, pt was established to ECG, blood pressure, HR and oximetry monitoring. STRESS EKG AND HEMODYNAMIC DATA. Resting heart rate: 117 BPM. Resting ECG: AF. Resting blood pressure: 124/76 mmHg. O2 saturation at rest: 92. Peak heart rate: 133 BPM. Peak blood pressure: 126/74 mmHg. Arrhythmias: AF throughout. Symptoms: The patient experienced no typical symptoms of angina during stress or recovery. Stress/Infusion ECG: No change in rhythm with no significant ST/T wave changes. Stress/infusion O2 saturation: 93% Impression: Uneventful Lexiscan. Conclusion: Await nuclear images.
--- NOTE | 2017-07-06 13:29 | PDANEPAE ---
ANE History of Present Illness Patient presents for LINO/CVC ANE Past Medical History - Cardiovascular History Hx Hypertension: Yes Hx Arrhythmias: Yes - Pulmonary History Hx Oxygen in Use at Home: No Hx Sleep Apnea: Yes Sleep Apnea Screening Result - Last Documented: Negative - Endocrine History Hx Diabetes: No - Chronic Pain History Chronic Pain: No ANE Review of Systems Review of Systems: - Exercise capacity Exercise capacity: limited by disability ANE Patient History - Allergies Allergies/Adverse Reactions: hydrocodone Allergy (Severe, Verified 07/03/17 12:15) Other-Enter Comments morphine Allergy (Verified 07/03/17 12:15) Itching oxycodone [From OxyContin] Allergy (Verified 07/03/17 12:15) Other-Enter Comments - Home Medications Home medications: home medication list seen and reviewed Home Medications: Ascorbic Acid [Vitamin C 500 mg (*)] 500 mg PO DAILY 04/26/17 [Last Taken ] - NPO status NPO Status: no food or drink >8 hours - Anes Hx Anes Hx: no prior problems - Smoking Hx Smoking Status: Former smoker - Alcohol Use Alcohol Use: Sober (for about 8 years at present) ANE Labs/Vital Signs - Labs Result Diagrams: 07/04/17 03:40 07/06/17 03:38 - Vital Signs Blood Pressure: 122/77 Heart Rate: 99 Respiratory Rate: 18 O2 Sat (%): 94 Height: 172.72 cm Weight: 103.419 kg ANE Physical Exam - Airway Neck exam: FROM Mallampati Score: Class 2 Mouth exam: normal dental/mouth exam - Pulmonary Pulmonary: no respiratory distress - Cardiovascular Cardiovascular: irregularly irregular - ASA Status ASA Status: III ANE Anesthesia Plan Anesthesia Plan: GA with mask (rba discussed)
[2017-07-06] MEDS ORDERED: PROPOFOL 200 MG/20 ML VIAL ONE (13:31)
[2017-07-06] MEDS ORDERED: LIDOCAINE 2% 100 MG/5 ML SYR ONE (13:31)
--- NOTE | 2017-07-06 14:09 | POSTANESTH ---
Post Anesthetic Evaluation Cardiovascular Status: Similar to Pre-Op Cond Respiratory Status: Similar to Pre-op Cond. Level of Consciousness/Mental Status: Can Participate in Eval Pain Control: Adequate, Prn Tx Ordered Nausea/Vomiting Control: Adequate, Prn Tx Ordered Complications Possibly Related to Anesthesia: None Noted
--- NOTE | 2017-07-06 15:20 | PDCARPN ---
Cardiology Progress Note Chief Complaint: Patient doing well today, but continues to be in atrial fibrillation (telemetry) Assessment/Plan: Assessment: 07-06-17 No events overnight. Stress testing today without evidence of ischaemia or infarction. Given the results of the stress test, and the ongoing revisitation of atrial fibrillation, we opted to proceed with LINO and possible cardioversion today. was present at bedside for these discussions. There apparently was a heated discussion last night with family members that was reportedly unsettling to both patient and . Chest pains continue to be noted, but were less appreciable today. Digoxin addition has not slowed the heart rates much overnight. Ongoing, uninterrupted use of Eliquis therapy. Bystolic therapy was stopped for an older beta evangelina to have better rate control ( Bystolic does not provide much rate control assistance). 07-05-17 Patient doing well today, but did have an episode of chest pains noted at about 0400 this morning. Echocardiography yesterday for assessment of LVEF, wall motion, and aortic morphology, was notable for mild reduction in systolic function (50% - query presence of atrial fibrillation) and no aortic pathology ( dissection or dilation not noted). was present with the patient today. Trial on Digoxin to assist with better rate control of atrial fibrillation. Ongoing use of anticoagulation for CVA and DVT/PE prophylaxis given the history of atrial fibrillation as well as heavy thrombus burden in the fall. Ongoing use of Eliquis therapy. 07-04-17 Patient is a 71 y/o male with history of atrial fibrillation s/p cardioversion in 2013 (successful per reports), ulcerative colitis, and large volume thrombus event (arterial and venous) in April 2017, where upon left kidney infarction was noted (and ultimately results in renal insufficiency), who presents to [facility] after complaints of chest discomfort were voiced. Discomfort is a pain with severity to 6/10 reported. There is radiation in the sternal region up into the jaw. No radiation into the shoulder was noted. Since the PE/DVT in the fall, the patient has been on uninterrupted Eliquis therapy. No PND or orthopnea has been noted. No fevers or chills. Patient was seen by my partner , Dr. Petr Moyer, in mid April 2017, after the aforementioned hospitalization. was present today, at bedside with the patient. On telemetry, heart rates are generally controlled (<100 bpm), and blood pressure was not elevated. Chest pains continue to be noted today. Patient felt that the chest pains started when playing with grandchildren, and continued to be noted (he did not awaken with symptoms yesterday). No cardiac biomarker elevation has been noted (three sets completed), and no ST/T wave changes were noted on ECG. Echocardiography in the past (about two months ago) without gross pathology known to patient. Patient/ could not recall the last time a stress test was performed. Plan: (1) Eliquis should continue for CVA prophylaxis (2) Would continue Lopressor and Digoxin for rate control assistance (3) Diltiazem should continue for rate control assistance as well (4) Stress testing without ischaemia or infarction patterns noted - No LVEF given the atrial fibrillation with rapid ventricular response (5) Would proceed with LINO and possible cardioversion today. Subjective: No cardiovascular complaints today. Reviewed/Discussed With: family, hospitalist, multidisciplinary team Objective: Vital Signs (8 Hrs) Temp Pulse Resp BP Pulse Ox 07/06/17 13:29 99 18 122/77 H 94 07/06/17 12:22 36.7 C 99 18 122/77 H 94 07/06/17 11:26 36.7 C 73 20 124/81 H 93 07/06/17 07:51 36.8 C 108 H 14 134/91 H 93 Intake/Output (24 Hrs) 07/05/17 07/06/17 07/07/17 05:59 05:59 05:59 Intake Total 200 1570 Output Total 600 2925 375 Balance -400 -1355 -375 Intake: Oral (ml) 200 1570 Output: Urine (ml) 600 2925 375 Toilet 200 Urinal 600 2925 175 Other: Weight 103.419 kg Number of Voids Toilet 1 Urinal 2 4 Result Diagrams: 07/04/17 03:40 07/06/17 03:38 Cardiac Labs: Cardiac Lab Results (72 Hrs) 07/05/17 11:53 Troponin I < 0.012 EKG: atrial fibrillation Telemetry: atrial fibrillation (rates were 100-120 bpm) - Physical Exam Constitutional: WDWN, healthy appearing, no apparent distress, obese Eyes: PERRL Ears, Nose, Mouth, Throat: moist mucous membranes Cardiovascular: systolic murmur, irregularly irregular, pulses symmetric bilat, No jugular vein distention Peripheral Pulses: 2+: dorsalis-pedis (R), dorsalis-pedis (L) Respiratory: clear to auscultate bilat, no crackles, no wheezes Gastrointestinal: normoactive bowel sounds Skin: no edema Musculoskeletal: no muscular tenderness Neurologic: AAOx3, CN II-XII grossly intact Psychiatric: cooperative, interactive, following commands ICD10 Worksheet Patient Problems: Problems Problem Status Onset Atrial fibrillation Acute Chest pain Acute Pulmonary emboli Acute
--- NOTE | 2017-07-06 15:31 | PDCARTEE ---
CAR LINO CAR LINO: PROCEDURE (1) ANESTHESIA FOR SEDATION (2) LINO (3) CARDIOVERSION (CONTINGENT ON LINO FINDINGS) INDICATION (1) ONGOING ATRIAL FIBRILLATION WITH RAPID VENTRICULAR RESPONSE DETAILS: After concerns were obtained, the patient was placed in the left lateral position. Anesthesia for sedation (propofol). LINO probe was placed without difficulty and standard views were obtained. LVEF was noted to be low normal ( 50-55%) with more pronounced septal hypokinesis appreciated. There was at least moderate mitral regurgitation. Severe biatrial dilation was noted. Aneurysmal atrial septum without color flow noted. Severe tricuspid regurgitation was noted. Left atrial appendage with echodensity strongly suggestive of thrombus. Moderate "smoke" to biatrial chambers. No cardioversion was performed given suspicion of thrombus.
--- NOTE | 2017-07-06 15:47 | HOSPPROG ---
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 control AF 2. diurese h/o VTE: neg d dimer ?cad: stress neg CKD; cr at baseline proph: anticoagulated Subjective: neg stress. suspected clot on LINO so no dccv Objective: Vital Signs Temp Pulse Resp BP Pulse Ox 36.7 C 103 H 20 134/79 H 90 L 07/06/17 12:22 07/06/17 15:19 07/06/17 15:19 07/06/17 15:19 07/06/17 15:19 Laboratory Results 07/06/17 03:38 07/05/17 07/06/17 07/07/17 05:59 05:59 05:59 Intake Total 200 1570 Output Total 600 2925 375 Balance -400 -1355 -375 - Physical Exam Constitutional: no apparent distress, appears nourished Eyes: PERRL, anicteric sclera Ears, Nose, Mouth, Throat: moist mucous membranes, hearing normal Cardiovascular: irregularly irregular, tachycardia Respiratory: no respiratory distress, no rales or rhonchi Gastrointestinal: normoactive bowel sounds, soft, non-tender abdomen Genitourinary: no bladder fullness, No acevedo in urethra Skin: warm, normal color Musculoskeletal: full muscle strength, no muscle tenderness Neurologic: AAOx3 Psychiatric: interacting appropriately ICD10 Worksheet Patient Problems: Problems Problem Status Onset Atrial fibrillation Acute Chest pain Acute Pulmonary emboli Acute
--- NOTE | 2017-07-06 16:14 | ECHO ---
[email or web address] [address] [address] Main: [phone] Fax: Transesophageal Echocardiography Name: DAY CALERO MR#: [id number] Study Date: 07/06/2017 Study Time: 01:22 PM Date of : 1945 Age: 72 year(s) Height: ( ) Weight: ( ) BSA: Gender: Male Examination: LINO Indication: Pre Cardioversion Image Quality: Contrast: Requested by: Lucrecia Pimentel Heart Rate: Rhythm: Atrial fibrillation BP: / Procedure Staff Grain Combiner: Jake Abbott Reading Physician: Art Snyder Requesting Provider: LINO Exam Details Conclusions: Spontaneous contrast in the left atrium. Spontaneous contrast is present in the left atrial appendage. The rhythm is atrial fibrillation. No cardioversion is performed at this time due to thrombus and spontaneous contrast in the JOH[place]ON and [place].. Measurements: Chambers Valvular Assessment AV/MV Valvular Assessment TV/PV Normal Normal Normal Name Value Range Name Value Range Name Value Range Additional Measurements: Findings: Left Atrium: Spontaneous contrast in the left atrium. Left Atrial Appendage: Definite thrombus in left appendage. Spontaneous contrast is present in the left atrial appendage. Exam Comments: The rhythm is atrial fibrillation. No cardioversion is performed at this time due to thrombus and spontaneous contrast in the JOHNSON and LA.. l1n Patient: DAY CALERO Study Date: 07/06/2017 Page 1 of 2 01:22 PM (No Signature Object) Patient: DAY CALERO Study Date: 07/06/2017 Page 2 of 2 01:22 PM [id number]
[2017-07-07] MEDS: ACETAMINOPHEN 325 MG TAB PO PRN (00:14)
[2017-07-07] MEDS: METOPROLOL TARTRATE 25 MG TAB PO SCH (08:30)
[2017-07-07] MEDS: APIXABAN 5 MG TAB PO SCH (08:30)
[2017-07-07] MEDS: FUROSEMIDE 40 MG/4 ML VIAL IVP SCH (08:30)
[2017-07-07] MEDS ORDERED: METOPROLOL TARTRATE 25 MG TAB PO SCH (08:46)
--- NOTE | 2017-07-07 10:37 | PDCARPN ---
Cardiology Progress Note Chief Complaint: Atrial fibrillation Assessment/Plan: Assessment: 1. Atrial fibrillation 2. could not rule out left atrial appendage thrombus on echocardiogram yesterday per Dr. Art Snyder 3. chest discomfort, resolved 4. recent pulmonary embolism and renal infarct Plan: 1. Continue Eliquis 2. slightly better rate control switching from Bystolic to metoprolol. Continue metoprolol at current dose. There is no room to increase the metoprolol at this time. Low-dose digoxin was added. 3. Patient to call our office on Sunday to schedule an appointment with Dr. Juan Manuel Moyer. If he cannot get in with Dr. Juan Manuel Moyer, is also happy to see Dr. Art Snyder, he will need repeat LINO and cardioversion in 6 weeks. 07/07/17 10:35 Subjective: offers no complaints today, no chest pain, no palpitations. is at bedside. Reviewed/Discussed With: family, hospitalist Time Spent With Patient: 15 minutes Objective: Vital Signs (8 Hrs) Temp Pulse Resp BP Pulse Ox 07/07/17 08:38 93 07/07/17 07:36 36.4 C 63 14 118/79 95 07/07/17 04:00 36.6 C 79 16 111/80 98 Intake/Output (24 Hrs) 07/05/17 07/06/17 07/07/17 11:59 11:59 11:59 Intake Total 200 1570 1550 Output Total 800 2900 1600 Balance -600 -1330 -50 Intake: Oral (ml) 200 1570 1550 Output: Urine (ml) 800 2900 1600 Toilet 200 Urinal 800 2900 1400 Other: Weight 103.419 kg Intake Quantity Yes Sufficient Number of Voids Toilet 1 Urinal 2 4 3 Number of Stools Urinal 0 Result Diagrams: 07/04/17 03:40 07/07/17 04:16 Cardiac Labs: Cardiac Lab Results (72 Hrs) 07/05/17 11:53 Troponin I < 0.012 Telemetry: atrial fibrillation, ventricular rates between 80 to 110 beats per minute. ICD10 Worksheet Patient Problems: Problems Problem Status Onset Atrial fibrillation Acute Pulmonary emboli Acute Chest pain Acute
[2017-07-07] MEDS: DIGOXIN 125 MCG TAB PO SCH (11:13)
[2017-07-07 11:51] VITALS: BP 110/68; PULSE 76; RESP 12; TEMP 97.6; O2SAT 90
--- NOTE | 2017-07-07 14:03 | ASDISCHSUM ---
Discharge Information Plan Status:Home with No Needs Medically Cleared to Leave: Discharge Date:07/07/2017 01:10 PM CM D/C Disposition:Home, Routine, Self-Care ADT D/C Disposition:Home, Routine, Self-Care Projected Discharge Date:07/07/2017 01:10 PM Transportation at D/C:Family Discharge Delay Reason: Follow-Up Date:07/07/2017 01:10 PM Discharge Slot: Final Diagnosis: Placement Information Patient Contact Information Contact Name:CORY Relationship: Address:[address] City:[place] Alternate Phone: [facility]/Zip Code:[place] [address] Email: Financial Information Financial Class:Medicare Advantage Plans Primary Plan Desc:[facility] [employer] PLANS Primary Plan Number:[id number] Secondary Plan Desc: Secondary Plan Number: Assessment Information [facility] CM Progress Note CM Note CM Note Notes: Patient admitted for chest pain and decreased activity tolerance. Cardiology consult today recommends echocardiography and possible cardioversion with LINO. Patient lives with and is normally independent. I do not anticipate any discharge needs, but Case Management is available if any arise. Date Signed: 07/04/2017 02:51 PM Electronically Signed By:Carmen Christensen RN Case Management Discharge Plan Note Case Management Discharge Discharge Order Complete? Answers: Yes Patient to Obtain Answers: Independently Medications Transportation Arranged Answers: Family/Friends Family Notified Answers: Yes Discharge Comments Notes: Patient being discharged to home. will transport. No CM needs identified. Date Signed: 07/07/2017 11:40 AM Electronically Signed By:Carmen Christensen RN Intervention Information Intervention Type:*RAMIREZ-Signed Date of Service:07/04/2017 10:04 AM Patient Type:Observation Staff Member:Marylu Phoenix Hours: Discipline: Severity: Comment:
--- NOTE | 2017-07-08 05:00 | GDS ---
[f rep st] DISCHARGE SUMMARY DISCHARGE DIAGNOSES: Include. 1. Atrial fibrillation with rapid ventricular response. 2. Chest pain. 3. Acute mild systolic heart failure. 4. Chronic kidney disease. HISTORY OF PRESENT ILLNESS: A 72-year-old male with atrial fibrillation presenting with chest pain. For details of the patient's initial presentation, please see the history and physical dated 018. CONSULTATIVE SERVICES: Include Cardiology. PROCEDURES: 07/06/2017 the patient had a myocardial perfusion scan that showed no inducible ischemia . On 07/06/2017, the patient had a transesophageal echocardiogram showing a thrombus in the left raji endage. HOSPITAL COURSE BY ISSUE: 1. Atrial fibrillation. The patient was initiated on metoprolol therapy from [facility]. Had this me dication up titrated. Additionally started on low-dose digoxin. It was felt safer to watch the warner ent on anticoagulation and rate-control medications at this time. He will follow with Dr. Juan Manuel Brandt on in the next 7-10 days. 2. Chest pain. Patient's myocardial stress testing was negative for any inducible ischemia. Maria Alejandra t was continued on beta evangelina and Eliquis. He will be followed again by Cardiology. MEDICATIONS AT THE TIME OF DISPOSITION: Please reference the med rec printed on 07/07/2017. FOLLOWUP APPOINTMENTS: Include with Dr. Moyer from [facility] in the next 7-10 days. For his first post-disposition evaluation. PENDING STUDIES: At the time of this dictation are none. TIME SPENT: I spent greater than 30 minutes in the planning and coordination of this discharge. /[id number]/MODL
== END 2017-07-07 13:10 | disposition home or self-care (01) | DRG 308 ==
LOC: F2W 16:34 → OBSVTOIN 07-04 17:32
PROVIDERS: ADMIT Internal Medicine; ATTEND Internal Medicine
PROC: B245ZZ4 Ultrasonography of Left Heart, Transesophageal (ICD-10-PCS; principal; 2017-07-06)
DX: I48.91 Unspecified atrial fibrillation (principal); I50.21 Acute systolic (congestive) heart failure; I51.3 Intracardiac thrombosis, not elsewhere classified; R07.89 Other chest pain; I12.9 Hypertensive chronic kidney disease with stage 1 through stage 4 chronic kidney disease, or unspecified chronic kidney disease; N18.9 Chronic kidney disease, unspecified; G47.30 Sleep apnea, unspecified; Z86.711 Personal history of pulmonary embolism; Z79.01 Long term (current) use of anticoagulants; Z87.891 Personal history of nicotine dependence
CPT/HCPCS: A9500; G0378; J0461; J1170; J1940; J2001; J2704; J2785

== ENCOUNTER 2017-08-27 07:40 | Day surgery (SDC) | payer OTHER ==
[2017-08-27] MEDS ORDERED: BENZOCAINE UNIT DOSE SPRAY HURRICAINE MM ONE (07:43)
[2017-08-27] MEDS ORDERED: NS 500 ML IV ONE (07:43)
[2017-08-27] MEDS ORDERED: ATROPINE SULFATE 1 MG/10 ML SYR IVP ONE (07:43)
[2017-08-27] MEDS ORDERED: fentaNYL 100 MCG/2 ML INJ IVP ONE (07:43)
[2017-08-27] MEDS ORDERED: MIDAZOLAM 2 MG/2 ML VIAL IVP ONE (07:43)
--- NOTE | 2017-08-27 08:03 | CPEKG ---
Heart Rate: 77 RR Interval: 779 QRSD Interval: 126 QT Interval: 432 QTC Interval: 489 QRS [place]: 97 T Wave [place]: -34 EKG Severity - ABNORMAL ECG - EKG Impression: ATRIAL FIBRILLATION, V-RATE 65-90 EKG Impression: RBBB AND LPFB EKG Impression: UNCHANGED IN COMPARISON TO PRIOR Electronically Signed By: Art Snyder 27-Aug-2017 08:20:38
[2017-08-27 08:37] LABS: INR 1.21 (0.83-1.16); PROTIME(PATIENT) 15.5 SEC (12.0-15.0)
[2017-08-27] MEDS ORDERED: PROPOFOL 200 MG/20 ML VIAL ONE ×2 (08:56)
--- NOTE | 2017-08-27 09:04 | PDANEPAE ---
ANE History of Present Illness LINO,cardioversion. ANE Past Medical History - Cardiovascular History Hx Hypertension: Yes Hx Arrhythmias: Yes Cardiovascular History Comment: paroxysmal atrial fibrillation - Pulmonary History Hx COPD: No Hx Asthma/Reactive Airway Disease: No Hx Recent Upper Respiratory Infection: No Hx Oxygen in Use at Home: No Hx Sleep Apnea: Yes Pulmonary History Comment: hx of pulmonary embolism. Hx of obstructive sleep apnea, mild as per patient, does not CPAP - Endocrine History Hx Diabetes: No Hypothyroid: No Hyperthyroid: No Obesity: moderate - Liver History Hx Hepatic Disorders: No - Neurological & Psychiatric Hx Hx Neurological and Psychiatric Disorders: No Neurological / Psychiatric History Comment: hx of TIA about 15 years ago - Cancer History Hx Cancer: No - GI History GERD: no Hx Gastrointestinal Disorders: Yes Gastrointestinal History Comment: hx of colitis - Chronic Pain History Chronic Pain: No ANE Review of Systems Review of Systems: - Exercise capacity METS (RN): 3 METS ANE Patient History - Allergies Allergies/Adverse Reactions: hydrocodone Allergy (Severe, Verified 07/03/17 12:15) Other-Enter Comments morphine Allergy (Verified 07/03/17 12:15) Itching oxycodone [From OxyContin] Allergy (Verified 07/03/17 12:15) Other-Enter Comments - Home Medications Home medications: home medication list seen and reviewed Home Medications: Ascorbic Acid [Vitamin C 500 mg (*)] 500 mg PO DAILY 04/26/17 [Last Taken ] - Anes Hx Anes Hx: no prior problems - Smoking Hx Smoking Status: Former smoker - Alcohol Use Alcohol Use: None - Family Anes Hx Family Anes Hx: none ANE Labs/Vital Signs - Labs Result Diagrams: 08/27/17 08:15 - Vital Signs Height: 173 cm Weight: 99.8 kg ANE Physical Exam - Airway Neck exam: decreased ROM (Decreased cervical spine extension) Mallampati Score: Class 1 - Pulmonary Pulmonary: no respiratory distress - Cardiovascular Cardiovascular: irregularly irregular - ASA Status ASA Status: III ANE Anesthesia Plan Anesthesia Plan: GA with mask
--- NOTE | 2017-08-27 09:31 | PDGENHP ---
History & Physical Chief Complaint: Atrial fibrillation History of Present Illness: Patient is a 72 y/o male with history of atrial fibrillation with thrombus noted to the JOHNSON about two weeks ago. Patient has been feeling well, and maintained therapy on Eliquis, uninterrupted, since the last procedure. Pertinent Past, Social, Family History: Unchanged findings Relevant Physical Exam: GEN: comfortable, LUNGS: CTA; COR: IRREG RATE/RHYTHM ( heart rate of 75-80 bpm). Cardiorespiratory Assessment: Normal findings appreciated.
--- NOTE | 2017-08-27 09:48 | PDCARTEE ---
CAR LINO CAR LINO: PROCEDURE: (1) LINO (2) POSSIBLE CARDIOVERSION INDICATION: Known thrombus to the JOHNSON with LINO two weeks ago. Therapy on Eliquis was started, and today was a repeat assessment of the Left atrial appendage to ensure thrombus is absent. A thin wisp of thrombus continues to be noted, and cardioversion is aborted. Limited LINO for reassessment of the JOHNSON continues to show what appears to be thrombus (dramatically reduced, but still present, nontheless). No cardioversion performed. Would continue uninterrupted Eliquis therapy for another two weeks, where upon the LINO with possible cardioversion will be performed.
--- NOTE | 2017-08-27 15:22 | ECHO ---
[email or web address] [place] [id number] Main: [phone] Fax: Transesophageal Echocardiography Name: DAY CALERO MR#: [id number] Study Date: 08/27/2017 Study Time: 09:06 AM Date of : 1945 Age: 72 year(s) Height: ( ) Weight: ( ) BSA: Gender: Male Examination: LINO Indication: Atrial Fibrillation Image Quality: Contrast: Requested by: Art Snyder Heart Rate: Rhythm: BP: / Procedure Staff Coil Machine Operator: Ursula Arnett RDCS Reading Physician: Art Snyder MD Requesting Provider: LINO Exam Details Conclusions: Probable thrombus in left appendage. Spontaneous contrast is present in the left atrial appendage. Velocities obtained in JOHNSON were less than optimal for adequate flow.. The thrombus that appears present is vastly improved in comparison to prior but still present nonetheless. Measurements: Chambers Valvular Assessment AV/MV Valvular Assessment TV/PV Normal Normal Normal Name Value Range Name Value Range Name Value Range Additional Measurements: Findings: Left Atrial Appendage: Probable thrombus in left appendage. Spontaneous contrast is present in the left atrial appendage. Velocities obtained in J[place]ON were less than optimal for adequate flow.. l1n Patient: DAY CALERO Study Date: 08/27/2017 Page 1 of 2 09:06 AM (No Signature Object) Patient: DAY CALERO Study Date: 08/27/2017 Page 2 of 2 09:06 AM [id number]
== END 2017-08-27 11:06 | disposition home or self-care (01) ==
LOC: FCATH 07:40
PROVIDERS: ATTEND Internal Medicine Cardiovascular Disease
PROC: B245ZZ4 Ultrasonography of Left Heart, Transesophageal (ICD-10-PCS; principal; 2017-08-27)
DX: I48.0 Paroxysmal atrial fibrillation (principal); G47.33 Obstructive sleep apnea (adult) (pediatric); Z79.01 Long term (current) use of anticoagulants; Z87.891 Personal history of nicotine dependence
CPT/HCPCS: J0461; J2704

== ENCOUNTER 2017-09-12 06:18 | Day surgery (SDC) | payer OTHER ==
[2017-09-12] MEDS ORDERED: MIDAZOLAM 2 MG/2 ML VIAL IVP ONE (06:22)
[2017-09-12] MEDS ORDERED: NS 500 ML IV ONE (06:22)
[2017-09-12] MEDS ORDERED: BENZOCAINE UNIT DOSE SPRAY HURRICAINE MM ONE (06:22)
[2017-09-12] MEDS ORDERED: ATROPINE SULFATE 1 MG/10 ML SYR IVP ONE (06:22)
[2017-09-12] MEDS ORDERED: fentaNYL 100 MCG/2 ML INJ IVP ONE (06:22)
--- NOTE | 2017-09-12 06:36 | CPEKG ---
Heart Rate: 68 RR Interval: 882 QRSD Interval: 120 QT Interval: 424 QTC Interval: 451 QRS [place]: 98 T Wave [place]: -15 EKG Severity - ABNORMAL ECG - EKG Impression: ATRIAL FIBRILLATION, V-RATE 50-88 EKG Impression: RBBB AND LPFB Preliminary Awaiting MD Review
[2017-09-12 07:04] LABS: INR 1.23 (0.83-1.16); PROTIME(PATIENT) 15.7 SEC (12.0-15.0)
--- NOTE | 2017-09-12 07:59 | PDHPUP ---
History & Physical Update H&P update statement: This history and physical update is based on an assessment of the patient which was completed after admission or registration (within 24 hours), but prior to the surgery/procedure. H&P update: H&P reviewed & patient examined, no change in patient's condition since H&P completed, changes noted
--- NOTE | 2017-09-12 08:05 | PDANEPAE ---
ANE Past Medical History - Cardiovascular History Hx Hypertension: Yes Hx Arrhythmias: Yes Cardiovascular History Comment: paroxysmal atrial fibrillation - Pulmonary History Hx COPD: No Hx Asthma/Reactive Airway Disease: No Hx Recent Upper Respiratory Infection: No Hx Oxygen in Use at Home: No Hx Sleep Apnea: Yes Pulmonary History Comment: hx of pulmonary embolism. Hx of obstructive sleep apnea, mild as per patient, does not CPAP - Endocrine History Hx Diabetes: No - Liver History Hx Hepatic Disorders: No - Neurological & Psychiatric Hx Hx Neurological and Psychiatric Disorders: No Neurological / Psychiatric History Comment: hx of TIA about 15 years ago - Cancer History Hx Cancer: No - GI History Hx Gastrointestinal Disorders: Yes Gastrointestinal History Comment: hx of colitis - Chronic Pain History Chronic Pain: No ANE Review of Systems Review of Systems: ANE Patient History - Allergies Allergies/Adverse Reactions: hydrocodone Allergy (Severe, Verified 07/03/17 12:15) Other-Enter Comments morphine Allergy (Verified 07/03/17 12:15) Itching oxycodone [From OxyContin] Allergy (Verified 07/03/17 12:15) Other-Enter Comments - Home Medications Home Medications: Ascorbic Acid [Vitamin C 500 mg (*)] 500 mg PO DAILY 04/26/17 [Last Taken ] Metoprolol Tartrate 25 mg PO BID 09/12/17 [Last Taken 09/12/17] - Smoking Hx Smoking Status: Former smoker ANE Labs/Vital Signs - Labs Result Diagrams: 09/12/17 06:45 - Vital Signs Height: 175.26 cm Weight: 99.79 kg ANE Physical Exam - Airway Neck exam: FROM Mallampati Score: Class 2 - Pulmonary Pulmonary: no respiratory distress, no rales or rhonchi - Cardiovascular Cardiovascular: irregularly irregular - ASA Status ASA Status: III ANE Anesthesia Plan Anesthesia Plan: GA with mask
[2017-09-12] MEDS ORDERED: PROPOFOL 200 MG/20 ML VIAL ONE (08:06)
[2017-09-12] MEDS ORDERED: PERFLUTREN LIPID MICROSPHERES 1.1 MG/ML VIAL IV ONE (08:18)
--- NOTE | 2017-09-12 08:40 | PDTEE1 ---
LINO Cardioversion Procedure Procedure: electrical cardioversion, transesophageal echo Indications: atrial fibrillation Consent: signed and in chart Anticoagulation: eliquis Procedural Details: After consents were signed by cardiology and anesthesia, patient was positioned on the left lateral side to facilitate ease with LINO probe placement. Old LINO from two weeks ago was reviewed to have idea on location of concern from prior study. LINO probe was placed without difficulty and standard views were obtained. Emphasis on the left atrial appendage apex. Prelim report: Heavy "smoke" (spontaneous contrast) was noted to the left atrium. The previously noted echodensity to the apex of the left atrial appendage continued to be noted - more suggestive of webbing than thrombus. With this study, Definity was used to better visuality vacancies to the left atrium and appendage. None were noted - the contrast agent opacified the entire left atrial appendage without findings to suggest thrombus. Moderate left atrial dilation continues to be noted. Reassessment of the remainder of the valves was not undertaken given particular concerns about the left atrial appendage. We opted to proceed with cardioversion (single synchronized shock at 200J). Sinus bradycardia at 40-45 bpm was noted after (pre shock rate was about 60 bpm with atrial fibrillation noted). No complications were appreciated with this procedure. Patient recovered without incident. Synchronized cardioversion attempt #1: 200J Results: other (sinus bradycardia) Conclusions: successful LINO cardioversion Patient Problems: Problems Problem Status Onset Atrial fibrillation Acute Chest pain Acute Pulmonary emboli Acute
[2017-09-12] MEDS ORDERED: ALBUTEROL 3 ML DEYVIAL IH PRN (08:41)
[2017-09-12] MEDS ORDERED: NALOXONE HCL 0.4 MG/ML INJ IVP PRN (08:41)
--- NOTE | 2017-09-12 08:41 | POSTANESTH ---
Post Anesthetic Evaluation Cardiovascular Status: Normal, Stable Respiratory Status: Normal, Stable, Similar to Pre-op Cond. Level of Consciousness/Mental Status: Can Participate in Eval Pain Control: Adequate, Prn Tx Ordered Nausea/Vomiting Control: Adequate, Prn Tx Ordered Complications Possibly Related to Anesthesia: None Noted
--- NOTE | 2017-09-12 08:42 | CPEKG ---
Heart Rate: 44 RR Interval: 1364 P-R Interval: 212 QRSD Interval: 118 QT Interval: 512 QTC Interval: 438 P [place]: 45 QRS [place]: 91 T Wave [place]: 18 EKG Severity - ABNORMAL ECG - EKG Impression: SINUS BRADYCARDIA EKG Impression: INCOMPLETE RIGHT BUNDLE BRANCH BLOCK Preliminary Awaiting MD Review
== END 2017-09-12 10:30 | disposition home or self-care (01) ==
LOC: FCATH 06:18
PROVIDERS: ATTEND Internal Medicine Cardiovascular Disease
DX: I48.0 Paroxysmal atrial fibrillation (principal); I10 Essential (primary) hypertension; G47.33 Obstructive sleep apnea (adult) (pediatric); Z79.01 Long term (current) use of anticoagulants; Z86.711 Personal history of pulmonary embolism; Z86.73 Personal history of transient ischemic attack (TIA), and cerebral infarction without residual deficits; Z87.891 Personal history of nicotine dependence
CPT/HCPCS: 92960; 93005; C8927; J0461; J2250; J2704; Q9957